=== PATIENT | female | born 1935 | race Caucasian/White ===

== ENCOUNTER 2021-12-25 14:30 | Outpatient (RCR) | payer MEDICARE, OTHER, SELFPAY | END 2022-02-18 11:42 | disposition home or self-care (01) | PROVIDERS: PCP Family Medicine; Visit Provider Family Medicine | DX: R53.1 Weakness (principal); Z51.89 Encounter for other specified aftercare | CPT/HCPCS: 97110; 97116; 97162 ==

== ENCOUNTER 2022-04-23 09:06 | Outpatient (CLI) | payer MEDICARE, OTHER, SELFPAY | END 2022-04-23 09:07 | disposition home or self-care (01) | LOC: AMB 04-26 14:32 | PROVIDERS: PCP Family Medicine; Visit Provider Family Medicine | DX: R53.1 Weakness (principal); R41.0 Disorientation, unspecified | CPT/HCPCS: A0425; A0427 ==

== ENCOUNTER 2022-04-23 09:36 | Inpatient (IN) | payer MEDICARE, OTHER, SELFPAY ==
[2022-04-23] VITALS (11 sets, daily range): BP systolic 119–147; BP diastolic 47–75; PULSE 81–113; RESP 15–40; TEMP 36.6–36.9; O2SAT 40–98; BMI 22.3; BMI 21.3
--- NOTE | 2022-04-23 10:17 | CRLHL7_ITS ---
For Patients: As a result of the Cures Act, medical imaging exams and procedure reports are released immediately into your electronic medical record. You may view this report before your referring provider. If you have questions, please contact your health care provider. INDICATION: Cough TECHNIQUE: Chest 1 view. COMPARISON: FINDINGS: Cardiovascular and mediastinum: Heart size and vasculature are normal in caliber and appearance. Mediastinum is within normal limits. Lungs and pleural space: Preceding left lung opacities. No sign of pleural effusion. No pneumothorax. Bones and soft tissues: No significant findings. IMPRESSION: Increasing left lung opacities compared to prior study. Dictated by Robin Mcdonald MD @ 04/23/2022 12:01:02 PM (Electronically Signed)
[2022-04-23 10:43] LABS: Lactate* 0.8 mmol/L (0.5-1.9)
[2022-04-23 10:46] LABS: Basophils Percent Auto 0.2 % (0.0-3.0); Eosinophils Percent Auto 0.3 % (0.0-7.0); Hematocrit 37.3 % (33.0-51.0); Hemoglobin* 12.2 gm/dL (12.0-16.0); Immature Granulocytes Pct Auto 0.2 %; Lymphocytes Percent Auto 9.6 % (20-44); Mean Corpuscular HGB Conc 33 gm/dL (32-36); Mean Corpuscular Hemoglobin 32 pg (26-34); Mean Corpuscular Volume 97 fL (80-100); Monocytes Percent Auto 7.6 % (0.0-11.0); Neutrophils Percent Auto 82.1 % (42.0-72.0); Platelet Count* 301 K/uL (140-440); RDW Coefficient of Variation % 12.9 % (11.5-15.5); Red Blood Count 3.86 m/uL (4.00-5.20); White Blood Count* 19.69 K/uL (4.50-11.00)
[2022-04-23 10:49] LABS: Troponin, Point-of-Care* 0.03 ng/ml (0.01-0.04)
[2022-04-23 10:52] LABS: Slide Review Reflex No
[2022-04-23 11:01] LABS: PCR FLU A Negative PCR FLU A (Negative); PCR FLU B Negative PCR FLU B (Negative); PCR RSV Negative PCR RSV (Negative)
[2022-04-23 11:05] LABS: Albumin* 3.8 g/dL (3.3-5.0); Chloride* 104 mmol/L (96-114)
[2022-04-23 11:06] LABS: Potassium* 4.1 mmol/L (3.6-5.1); Sodium* 134 mmol/L (135-149)
[2022-04-23 11:08] LABS: Bilirubin Direct* 0.2 mg/dL (0.0-0.5); Bilirubin Total* 0.6 mg/dL (0.1-1.5); Creatinine* 0.9 mg/dL (0.5-1.5); Est. Creatinine Clearance* 34.87; Estimated Glomerular Filt Rate 62 ml/min
[2022-04-23 11:09] LABS: Alanine Aminotransferase* 14 U/L (4-35); Alkaline Phosphatase* 69 U/L (40-150); Aspartate Amino Transferase* 29 U/L (12-35); Blood Urea Nitrogen* 19 mg/dL (7-30); Carbon Dioxide* 22 mmol/L (20-32); Glucose* 125 mg/dL (60-115); Total Protein* 7.3 g/dL (6.0-8.3)
[2022-04-23 11:11] LABS: C Reactive Protein* 8.3 mg/dL (0.5-1.0)
[2022-04-23 11:12] LABS: SARS PCR* Negative SARS-CoV-2 (Negative)
--- NOTE | 2022-04-23 11:16 | ED.GENADULT ---
HPI - General Adult General Chief complaint: Weakness Stated complaint: Weakness Time Seen by Provider: 04/23/22 10:01 Source: patient and family Mode of arrival: EMS Limitations: no limitations History of Present Illness HPI narrative: 86-year-old female coming in today complaining of weakness and cough. She states that her symptoms started last night. Patient lives at home with her , they both use walkers to get around. states that last night he had to help her stand up which is unusual. He then had to help her to bed where she wanted to go to bed early. She had several coughing fits throughout the night. This morning did not have the energy to get out of bed. Daughter came to check on them and noted that the patient did have an elevated temperature of 100.2?. Her did give her some Robitussin DM this morning and the ambulance was called and they presented to the ED. They deny any sick contacts. Patient states that she is COVID boosted and had her influenza vaccine this year. No changes in medications. No recent travel. She does not feel short of breath. She denies any chest pain. She does have a history of pulmonary fibrosis for which she has a mild chronic cough, but nothing like this. She has not eaten this morning. Denies tobacco use. Related Data Home Medications Medication Instructions Recorded Confirmed acetaminophen 500 mg capsule 500 mg PO Q6H PRN 04/23/22 04/23/22 aspirin 81 mg chewable tablet 81 mg PO DAILY 04/23/22 04/23/22 (Aspirin Childrens) atorvastatin 20 mg tablet 20 mg PO DAILY 04/23/22 04/23/22 benzonatate 100 mg capsule 100 mg PO TID PRN 04/23/22 04/23/22 calcium carb-ergocalciferol (vit tab PO 04/23/22 D2) 600 mg calcium-200 unit tablet famotidine 20 mg tablet 20 mg PO Q12H 04/23/22 04/23/22 latanoprost 0.005 % eye drops 1 drp ophthalmic (eye) HS 04/23/22 04/23/22 metoprolol tartrate 25 mg tablet 12.5 mg PO Q12H 04/23/22 04/23/22 nitroglycerin 0.4 mg sublingual 0.4 mg sublingual Q5-15M PRN 04/23/22 04/23/22 tablet (Nitrostat) Allergies Allergy/AdvReac Type Severity Reaction Status Date / Time codeine Allergy Mild Vomiting Verified 04/23/22 10:08 Penicillins Allergy Unknown Verified 04/23/22 10:08 Review of Systems Status of ROS: Reports: 10 or more systems reviewed and unremarkable except as noted in History and below [facility] Social History Smoking Status: Never smoker Do you use any of these nicotine containing products: None How often do you have a drink containing alcohol: never AUDIT-C Alcohol total score: 0 Non-prescribed substance use: denies use Exam Narrative: Exam Narrative: Elderly, well-developed patient in no acute distress. Alert and oriented x3. Answers questions appropriately. Mood and affect are appropriate. Thoughts are goal oriented and rational. No tangential or magical thinking noted. Patient speaks in full sentences without needing to catch her breath. Speech is not slurred or pressured. HEENT: Normocephalic atraumatic. Pupils are equally round reactive to light. Extraocular muscles are intact. Conjunctivae are moist without any icterus noted. Moist mucous membranes. Posterior pharynx is normal. Neck is supple without lymphadenopathy. Cardiovascular: Heart is regular rate and rhythm S1 and S2 are present without any murmurs. Lungs: Clear to auscultation on the right, left side has crackles and rales throughout the lung space. Abdomen: Soft and nontender nondistended with normal bowel sounds. No guarding or rebound. Extremities: Bilateral lower extremities are without edema. Skin: Well perfused without any obvious rashes. Const: Vital Signs, click to edit/add: Vital Signs - 24 hr 04/23/22 10:01 04/23/22 10:16 Temperature 97.8 F Pulse Rate [Right Pulse Oximeter] 100 Respiratory Rate 16 Blood Pressure [Ri ght Upper Arm] 130/64 Pulse Oximetry 91 97 Oxygen Delivery Me thod Room Air Course Course Hospital Course: IV was established and labs and blood cultures were drawn. EKG was done, read by me, without any acute changes. White cell count was elevated at 19.69. Sodium slightly low at 134. Remainder of chemistries and LFTs were normal. CRP elevated at 8.3. Negative COVID, influenza and RSV. Chest x-ray read by me, showing a probable left-sided effusion. Patient was started on azithromycin and Rocephin. She was saturating 91% on arrival on room air, she was placed on 2 L nasal cannula which increase her saturation to the upper 90s. Vital Signs Vital signs: Initial Vital Signs Temperature 97.8 F 04/23/22 10:01 Temperature Source Temporal Artery Scan 04/23/22 10:01 Pulse Rate 100 04/23/22 10:01 Respiratory Rate 16 04/23/22 10:01 Blood Pressure 130/64 04/23/22 10:01 Blood Pressure Mean 86 04/23/22 10:01 Blood Pressure Position Sitting 04/23/22 10:01 Pulse Oximetry 91 04/23/22 10:01 Oxygen Delivery Method 04/23/22 10:01 Vital Signs Temperature 97.8 F 04/23/22 10:01 Pulse Rate 100 04/23/22 10:01 Respiratory Rate 16 04/23/22 10:01 Blood Pressure 130/64 04/23/22 10:01 Pulse Oximetry 91 04/23/22 10:01 Oxygen Delivery Method 04/23/22 10:01 Temperature 97.8 F 04/23/22 10:01 Pulse Rate 100 04/23/22 10:01 Respiratory Rate 16 04/23/22 10:01 Blood Pressure 130/64 04/23/22 10:01 Pulse Oximetry 97 04/23/22 10:16 Oxygen Delivery Method 04/23/22 10:01 Medical Decision Making MDM Narrative Medical decision making narrative: 86-year-old female with pneumonia and mild hypoxia. Patient be admitted for further management. Lab Data Lab results reviewed: Yes I reviewed the patient's lab results Labs: Lab Results 04/23/22 04/23/22 04/23/22 Range/Units 10:13 10:26 10:26 WBC 19.69 H (4.50-11.00) K/uL RBC 3.86 L (4.00-5.20) m/uL Hgb 12.2 (12.0-16.0) gm/dL Hct 37.3 (33.0-51.0) % MCV 97 (80-100) fL MCH 32 (26-34) pg MCHC 33 (32-36) gm/dL RDW Coeff of Missael 12.9 (11.5-15.5) % Plt Count 301 (140-440) K/uL Neut % (Auto) 82.1 H (42.0-72.0) % Lymph % (Auto) 9.6 L (20-44) % [place] % (Auto) 7.6 (0.0-11.0) % Eos % (Auto) 0.3 (0.0-7.0) % Baso % (Auto) 0.2 (0.0-3.0) % Neut # (Auto) 16.20 H (1.7-7.0) K/uL Lymph # (Auto) 1.90 (0.90-2.90) K/uL [place] # (Auto) 1.50 H (0.00-0.90) K/UL Eos # (Auto) 0.10 (0.00-0.50) K/uL Baso # (Auto) 0.00 (0.00-0.30) K/uL Sodium 134 L (135-149) mmol/L Potassium 4.1 (3.6-5.1) mmol/L Chloride 104 (96-114) mmol/L Carbon Dioxide 22 (20-32) mmol/L BUN 19 (7-30) mg/dL Creatinine 0.9 (0.5-1.5) mg/dL Estimated Creat Clear 34.87 Estimated GFR 62 ml/min Glucose 125 H (60-115) mg/dL Lactate (0.5-1.9) mmol/L Calcium 9.0 (8.4-10.6) mg/dL Total Bilirubin 0.6 (0.1-1.5) mg/dL Direct Bilirubin 0.2 (0.0-0.5) mg/dL AST 29 (12-35) U/L ALT 14 (4-35) U/L Alkaline Phosphatase 69 (40-150) U/L Troponin I 0.02 (0.01-0.04) ng/mL C-Reactive Protein 8.3 H (0.5-1.0) mg/dL Total Protein 7.3 (6.0-8.3) g/dL Albumin 3.8 (3.3-5.0) g/dL SARS-CoV-2 (PCR) Negative SARS-CoV-2 (Negative) Influenza Type A (PCR) Negative PCR FLU A (Negative) Influenza Type B (PCR) Negative PCR FLU B (Negative) RSV (PCR) Negative PCR RSV (Negative) POC Troponin I (0.01-0.04) ng/ml 04/23/22 04/23/22 Range/Units 10:26 10:39 WBC (4.50-11.00) K/uL RBC (4.00-5.20) m/uL Hgb (12.0-16.0) gm/dL Hct (33.0-51.0) % MCV (80-100) fL MCH (26-34) pg MCHC (32-36) gm/dL RDW Coeff of Missael (11.5-15.5) % Plt Count (140-440) K/uL Neut % (Auto) (42.0-72.0) % Lymph % (Auto) (20-44) % [place] % (Auto) (0.0-11.0) % Eos % (Auto) (0.0-7.0) % Baso % (Auto) (0.0-3.0) % Neut # (Auto) (1.7-7.0) K/uL Lymph # (Auto) (0.90-2.90) K/uL [place] # (Auto) (0.00-0.90) K/UL Eos # (Auto) (0.00-0.50) K/uL Baso # (Auto) (0.00-0.30) K/uL Sodium (135-149) mmol/L Potassium (3.6-5.1) mmol/L Chloride (96-114) mmol/L Carbon Dioxide (20-32) mmol/L BUN (7-30) mg/dL Creatinine (0.5-1.5) mg/dL Estimated Creat Clear Estimated GFR ml/min Glucose (60-115) mg/dL Lactate 0.8 (0.5-1.9) mmol/L Calcium (8.4-10.6) mg/dL Total Bilirubin (0.1-1.5) mg/dL Direct Bilirubin (0.0-0.5) mg/dL AST (12-35) U/L ALT (4-35) U/L Alkaline Phosphatase (40-150) U/L Troponin I (0.01-0.04) ng/mL C-Reactive Protein (0.5-1.0) mg/dL Total Protein (6.0-8.3) g/dL Albumin (3.3-5.0) g/dL SARS-CoV-2 (PCR) (Negative) Influenza Type A (PCR) (Negative) Influenza Type B (PCR) (Negative) RSV (PCR) (Negative) POC Troponin I 0.03 (0.01-0.04) ng/ml Imaging Data Chest x-ray: Attestation: I have reviewed the pertinent imaging results. Radiologist's impression: Chest 1 view. COMPARISON: FINDINGS: Cardiovascular and mediastinum: Heart size and vasculature are normal in caliber and appearance.? Mediastinum is within normal limits.? Lungs and pleural space: Preceding left lung opacities. No sign of pleural effusion.? No pneumothorax.? Bones and soft tissues: No significant findings.? ? IMPRESSION: Increasing left lung opacities compared to prior study. ECG Data Attestation: I personally reviewed and interpreted this ECG as follows: (Normal sinus rhythm, pulse 95) Discharge Plan Discharge Clinical Impression: Weakness, Hypoxia, Pneumonia Prescriptions: No Action atorvastatin 20 mg tablet 20 mg PO DAILY Label Comments: TAKE ONE TABLET BY MOUTH ONCE DAILY WITH EVENING MEAL benzonatate 100 mg capsule 100 mg PO TID PRN Label Comments: TAKE 1 CAPSULE (100 MG) BY MOUTH 3 TIMES DAILY IF NEEDED FOR COUGH. famotidine 20 mg tablet 20 mg PO Q12H Label Comments: TAKE 1 TABLET (20 MG) BY MOUTH TWO TIMES DAILY. latanoprost 0.005 % drops 1 drp ophthalmic (eye) HS Label Comments: INSTILL 1 DROP INTO RIGHT EYE AT BEDTIME metoprolol tartrate 25 mg tablet 12.5 mg PO Q12H Label Comments: TAKE 1/2 TABLET BY MOUTH TWICE A DAY aspirin [Aspirin Childrens] 81 mg tablet,chewable 81 mg PO DAILY acetaminophen 500 mg capsule 500 mg PO Q6H PRN calcium carbonate-vitamin D2 600 mg calcium- 200 unit tablet PO nitroglycerin [Nitrostat] 0.4 mg tablet, sublingual 0.4 mg sublingual Q5-15M PRN Rx Instructions: do not exceed 3 doses per episode Follow Up/Referrals: Ana Masters MD [Primary Care Provider] -
[2022-04-23 11:19] LABS: Troponin I* 0.02 ng/mL (0.01-0.04)
[2022-04-23] MEDS: cefTRIAXone 1 GM in 0.9 % SODIUM CHLORIDE Mini-bag 100 ML IVPB (12:31)
--- NOTE | 2022-04-23 12:56 | ED.NURSE ---
given report to nurse on M/S and plan to admit to room 247 via car.
[2022-04-23] MEDS: AZITHROMYCIN 500 MG in 0.9 % SODIUM CHLORIDE 250 ml 250 ML 255 MG IVPB (13:50)
[2022-04-23] MEDS: 0.9 % SODIUM CHLORIDE 250 ml IV (13:52)
--- NOTE | 2022-04-23 15:10 | P.IMHP_ITS ---
Hospitalist- H&P: HPI History of Present Illness Date Seen: 04/23/22 Chief complaint: Weakness Narrative: Sara Caban is a 86 year old female who was BIBA from home today for weakness and illness. Given patient's cognitive impairment, Robin provides most history. Patient has been weak over the past couple of days; she has also had a cough that has been worse at night and has inhibited her sleep. This morning, patient's energy was very poor and she was found to have a temperature of a 100.2?. Robitussin DM has been helpful for symptoms, and Sara is also on Tessalon Perles thrice daily with good relief. Patient denies any chest pain. Sara has a known history of pulmonary fibrosis and is on 5 mg of prednisone daily per pulmonology. She does not require supplemental oxygen at home. ER course and findings: - new left-sided pneumonia on chest x-ray in addition to chronic pulmonary fibrosis - O2 sat 90-91%, did well with supplemental oxygen in the emergency room - treated with azithromycin and ceftriaxone Patient is admitted to the hospital for acute on chronic hypoxic respiratory failure and weakness, in the setting of community-acquired pneumonia with a known history of pulmonary fibrosis. Patient's past medical history is updated below, information gleaned from her and her chart. Her PCP is Dr. Sonam smith. She is currently a Full Code. Review of Systems Status of ROS: Reports: 10 or more systems reviewed and unremarkable except as noted in History and below Narrative: Limited by cognitive impairment, but specifically denies any acute pain at this time. [facility] Medical History (Updated 04/23/22 @ 15:33 by Yun Galaviz MD) Coronary artery disease Dementia Essential hypertension HSP (Henoch Schonlein purpura) Leukocytoclastic vasculitis Osteoporosis Pulmonary fibrosis Rheumatoid arthritis Stage III chronic kidney disease Surgical History (Updated 04/23/22 @ 15:18 by Yun Galaviz MD) H/O shoulder replacement History of PTCA Family History (Updated 04/23/22 @ 15:21 by Yun Galaviz MD) Mother Coronary artery disease Father Coronary artery disease Social History (Updated 04/23/22 @ 15:21 by Yun Galaviz MD) Narrative: Lives with Robin independently. Robin is medical POA. Two adult children. Retired public health social worker. Never smoker, no alcohol use. Highest level of school completed/degree received: Master's degree Smoking Status: Never smoker Do you use any of these nicotine containing products: None How many standard drinks containing alcohol do you have on a typical day: 1 or 2 How often do you have six or more drinks on one occasion: Daily or almost daily AUDIT-C Alcohol total score: 4 Non-prescribed substance use: denies use Caffeine: Yes (half-caff 4 a day) service: No Meds Home Medications and Allergies Home Medications Medication Instructions Recorded Confirmed Type acetaminophen 500 mg capsule 500 mg PO Q6H PRN 04/23/22 04/23/22 History aspirin 81 mg chewable tablet 81 mg PO DAILY 04/23/22 04/23/22 History (Aspirin Childrens) atorvastatin 20 mg tablet 20 mg PO QPM 04/23/22 04/23/22 History benzonatate 100 mg capsule 100 mg PO TID PRN 04/23/22 04/23/22 History calcium carb-ergocalciferol (vit 1 tab PO BID 04/23/22 04/23/22 History D2) 600 mg calcium-200 unit tablet famotidine 20 mg tablet 20 mg PO Q12H 04/23/22 04/23/22 History latanoprost 0.005 % eye drops 1 drp ophthalmic (eye) HS 04/23/22 04/23/22 History metoprolol tartrate 25 mg tablet 12.5 mg PO Q12H 04/23/22 04/23/22 History multivitamin (Daily Multi-Vitamin 1 tab PO DAILY 04/23/22 04/23/22 History tablet) nitroglycerin 0.4 mg sublingual 0.4 mg sublingual Q5-15M PRN 04/23/22 04/23/22 History tablet (Nitrostat) Home Medication Comments: Patient also on Prednisone 5mg daily Allergies Allergy/AdvReac Type Severity Reaction Status Date / Time codeine Allergy Mild Vomiting Verified 04/23/22 10:08 Penicillins Allergy Unknown Verified 04/23/22 10:08 Exam Narrative: Exam Narrative: GEN: Awake in hospital bed, appears ill but nontoxic. Intermittent coughing paroxysms HEENT: Normal external ears, EOMIs bilaterally, no scleral icterus CV: RRR with heart rate in the 90s during my exam, No concerning murmurs, rubs, or gallops R: Intermittent tachypnea, coarse crackles left base, rhonchi throughout bilateral lung huang Ext: wwp, no concerning edema Skin: No concerning skin lesions or rashes on exposed skin Neuro: No focal deficits, no resting tremor Psych: Appropriate for chronic conditions Const: Vital Signs, click to edit/add: Vital Signs - 24 hr 04/23/22 10:01 04/23/22 10:16 04/23/22 13:31 Temperature 97.8 F 98.5 F Pulse Rate [Pulse Oximeter] 101 H Pulse Rate [Right Pulse Oximeter] 100 Respiratory Rate 16 30 H Blood Pressure [Ri ght Arm] 147/71 H Blood Pressure [Ri ght Upper Arm] 130/64 Pulse Oximetry 91 97 92 Oxygen Delivery Me thod Room Air Room Air 04/23/22 13:31 04/23/22 10:30 04/23/22 11:00 Temperature Pulse Rate [Pulse Oximeter] Pulse Rate [Right Pulse Oximeter] 92 89 Respiratory Rate 30 H 31 H 29 H Blood Pressure [Ri ght Arm] Blood Pressure [Ri ght Upper Arm] 123/59 L 125/65 Pulse Oximetry 93 97 98 Oxygen Delivery Me thod Room Air Room Air Room Air 04/23/22 11:30 04/23/22 12:00 04/23/22 12:30 Temperature Pulse Rate [Pulse Oximeter] Pulse Rate [Right Pulse Oximeter] 91 90 96 Respiratory Rate 32 H 15 26 H Blood Pressure [Ri ght Arm] Blood Pressure [Ri ght Upper Arm] 119/47 L 128/57 L 126/73 Pulse Oximetry 98 98 98 Oxygen Delivery Me thod Nasal Cannula Room Air Nasal Cannula Hospitalist - H&P: Result Labs Labs: Short CBC 04/23/22 Range/Units 10:26 WBC 19.69 H (4.50-11.00) K/uL Hgb 12.2 (12.0-16.0) gm/dL Hct 37.3 (33.0-51.0) % Plt Count 301 (140-440) K/uL BMP 04/23/22 10:26 Sodium 134 L Potassium 4.1 Chloride 104 Carbon Dioxide 22 BUN 19 Creatinine 0.9 Glucose 125 H Calcium 9.0 Cardiac Enzymes 04/23/22 Range/Units 10:26 Troponin I 0.02 (0.01-0.04) ng/mL Liver Function 04/23/22 Range/Units 10:26 Total Bilirubin 0.6 (0.1-1.5) mg/dL Direct Bilirubin 0.2 (0.0-0.5) mg/dL AST 29 (12-35) U/L ALT 14 (4-35) U/L Alkaline Phosphatase 69 (40-150) U/L Albumin 3.8 (3.3-5.0) g/dL Assessment and Plan Assessment and plan (1) Acute and chronic respiratory failure with hypoxia: Problem comment: - multifactorial: CAP, pulmonary fibrosis flare - antibiotics, increase home Prednisone dose from 5 --> 40mg daily, prn supplemental oxygen and nebs, RT referral Status: Acute (2) Pneumonia: Problem comment: - Ceftriaxone and Azithromycin initiated in ED 04/23, will continue Status: Acute (3) Weakness: Problem comment: - acute on chronic - PT and OT referrals ordered Status: Acute (4) Pulmonary fibrosis: Problem comment: - diagnosed in 2014 - Has seen both Pulmonology and Rheumatology Status: Acute (5) Dementia: Problem comment: - no history of agitation, will monitor Status: Acute Plan - per above - SCDs and home ASA for ppx
[2022-04-23] MEDS: METOPROLOL TARTRATE 25 MG TABLET 12.5 MG PO (15:23)
[2022-04-23] MEDS: predniSONE 20 MG TABLET 40 MG PO (15:23)
[2022-04-23] MEDS: ACETAMINOPHEN 325 MG TABLET 975 MG PO ×2 (15:23→21:19)
[2022-04-23] MEDS: BENZONATATE 100 MG CAPSULE PO ×2 (15:25→21:19)
[2022-04-23] MEDS: FAMOTIDINE 20 MG TABLET PO (15:25)
[2022-04-23] MEDS: guaiFENesin 100 MG/ML CUP PO (16:07)
[2022-04-23] MEDS: ATORVASTATIN 10 MG TABLET 20 MG PO (17:58)
--- NOTE | 2022-04-23 18:10 | PC.NURSE ---
End of Shift: Patient pleasant and cooperative, arrived to the floor at about 1300 by bed. Patient oriented to self and location. Patient is vitally stable, lungs with crackles, BS WNL, IV SL. Patient too weak to ambulate today. Patient incontinent using brief. Patient diaphoretic but afebrile with telegraphic typewriter repairer, AGILE DEVELOPER did report a temp of 100.1, RN rechecked and afebrile. Patient has dry, unproductive cough, cough medicine given once, and tylenol given once for comfort. Patient only took a couple bites of half of piece of toast. Patient desated once, lowest 86%, patient currently on RA.
[2022-04-23] MEDS: LATANOPROST 0.005% OPHTH 1 DROP EYE-BOTH (21:19)
[2022-04-24 02:03] VITALS: BP 143/84; PULSE 75; RESP 20; TEMP 36.2; O2SAT 95
[2022-04-24] MEDS: METOPROLOL TARTRATE 25 MG TABLET 12.5 MG PO ×2 (04:13→15:38)
[2022-04-24] MEDS: FAMOTIDINE 20 MG TABLET PO ×2 (04:13→15:38)
[2022-04-24] MEDS: guaiFENesin 100 MG/ML CUP PO ×4 (04:13→20:13)
[2022-04-24 06:33] LABS: Basophils Percent Auto 0.1 % (0.0-3.0); Hematocrit 36.6 % (33.0-51.0); Hemoglobin* 12.1 gm/dL (12.0-16.0); Immature Granulocytes Pct Auto 0.2 %; Lymphocytes Percent Auto 8.4 % (20-44); Mean Corpuscular HGB Conc 33 gm/dL (32-36); Mean Corpuscular Hemoglobin 32 pg (26-34); Mean Corpuscular Volume 97 fL (80-100); Monocytes Percent Auto 3.8 % (0.0-11.0); Neutrophils Percent Auto 87.5 % (42.0-72.0); Platelet Count* 313 K/uL (140-440); RDW Coefficient of Variation % 12.9 % (11.5-15.5); Red Blood Count 3.79 m/uL (4.00-5.20); White Blood Count* 20.59 K/uL (4.50-11.00)
[2022-04-24 06:47] LABS: Chloride* 105 mmol/L (96-114); Potassium* 4.1 mmol/L (3.6-5.1); Sodium* 137 mmol/L (135-149)
[2022-04-24 06:50] LABS: Blood Urea Nitrogen* 24 mg/dL (7-30); Carbon Dioxide* 22 mmol/L (20-32); Creatinine* 0.9 mg/dL (0.5-1.5); Est. Creatinine Clearance* 34.87; Estimated Glomerular Filt Rate 62 ml/min; Glucose* 153 mg/dL (60-115)
[2022-04-24 06:51] LABS: Calcium* 9.3 mg/dL (8.4-10.6); Slide Review Reflex No
[2022-04-24 07:00] VITALS: BP 142/77; PULSE 84; RESP 24; TEMP 36.6; O2SAT 96
--- NOTE | 2022-04-24 08:14 | PC.NURSE ---
End of shift status [id number] Pt alert with chronic confusion. Pleasant, non impulsive. Denies pain. VSS on room air. PRN cough medicine given overnight. LS with crackles throughout. Incontinent of bowel and bladder overnight. Up with heavy assist of 2. Pt did ambulate to bathroom and back with unsteady gait and hesitation with taking steps. Intermittent resting between cares.
[2022-04-24] MEDS: predniSONE 20 MG TABLET 40 MG PO (08:57)
[2022-04-24] MEDS: AZITHROMYCIN 250 MG TABLET PO (08:57)
[2022-04-24] MEDS: ASPIRIN 81 MG TAB.CHEW PO (08:57)
--- NOTE | 2022-04-24 09:20 | PM.IMPN1 ---
Progress Note: A&P Assessment and plan (1) Acute and chronic respiratory failure with hypoxia: Problem details: - multifactorial: CAP, pulmonary fibrosis flare - antibiotics, increase home Prednisone dose from 5 --> 40mg daily, prn supplemental oxygen and nebs, RT referral Status: Acute (2) Pneumonia: Problem details: - Ceftriaxone and Azithromycin initiated in ED 04/23, will continue Status: Acute (3) Pulmonary fibrosis: Problem details: - diagnosed in 2014 - Has seen both Pulmonology and Rheumatology Status: Acute (4) Weakness: Problem details: - acute on chronic - PT and OT referrals ordered Status: Acute (5) Dementia: Problem details: - no history of agitation, will monitor Status: Acute Plan Plan for 04/24 on room air continue antibiotics continue steroids PT, OT evaluation anticipate she will need SNF Code status discussed; family electing to keep full code Subjective Date Seen: 04/24/22 Interval history: Patient hx limited by dementia continues to cough on room air denies chest pain eating breakfast w/o difficulty daughter and at bedside. code status discussed they want to keep patient full code Exam Narrative: Exam Narrative: Gen: no acute distress HEENT: NCAT EOMI MMM CV: RRR s1 s2 Lungs: Coarse breath sounds; coughing Abd: osft, nt, nd Const: Vital Signs, click to edit/add: Vital Signs - 24 hr 04/23/22 10:01 04/23/22 10:16 04/23/22 13:31 Temperature 97.8 F 98.5 F Pulse Rate [Pulse Oximeter] 101 H Pulse Rate [Right Pulse Oximeter] 100 Respiratory Rate 16 30 H Blood Pressure [Le ft Arm] Blood Pressure [Ri ght Arm] 147/71 H Blood Pressure [Ri ght Upper Arm] 130/64 Pulse Oximetry 91 97 92 Oxygen Delivery Me thod Room Air Room Air 04/23/22 13:31 04/23/22 10:30 04/23/22 11:00 Temperature Pulse Rate [Pulse Oximeter] Pulse Rate [Right Pulse Oximeter] 92 89 Respiratory Rate 30 H 31 H 29 H Blood Pressure [Le ft Arm] Blood Pressure [Ri ght Arm] Blood Pressure [Ri ght Upper Arm] 123/59 L 125/65 Pulse Oximetry 93 97 98 Oxygen Delivery Me thod Room Air Room Air Room Air 04/23/22 11:30 04/23/22 12:00 04/23/22 12:30 Temperature Pulse Rate [Pulse Oximeter] Pulse Rate [Right Pulse Oximeter] 91 90 96 Respiratory Rate 32 H 15 26 H Blood Pressure [Le ft Arm] Blood Pressure [Ri ght Arm] Blood Pressure [Ri ght Upper Arm] 119/47 L 128/57 L 126/73 Pulse Oximetry 98 98 98 Oxygen Delivery Me thod Nasal Cannula Room Air Nasal Cannula 04/23/22 15:00 04/23/22 15:00 04/23/22 15:00 Temperature 98.5 F Pulse Rate [Pulse Oximeter] 113 H 113 H Pulse Rate [Right Pulse Oximeter] Respiratory Rate 40 H 40 H Blood Pressure [Le ft Arm] 132/57 L Blood Pressure [Ri ght Arm] Blood Pressure [Ri ght Upper Arm] Pulse Oximetry 40 L 91 Oxygen Delivery Me thod Room Air Room Air 04/23/22 21:17 04/23/22 23:00 04/23/22 23:00 Temperature 98.2 F Pulse Rate [Pulse Oximeter] 81 81 Pulse Rate [Right Pulse Oximeter] Respiratory Rate 20 20 20 Blood Pressure [Le ft Arm] Blood Pressure [Ri ght Arm] 133/75 Blood Pressure [Ri ght Upper Arm] Pulse Oximetry 97 97 Oxygen Delivery Me thod Room Air Room Air 04/24/22 02:03 Temperature 97.1 F L Pulse Rate [Pulse Oximeter] 75 Pulse Rate [Right Pulse Oximeter] Respiratory Rate 20 Blood Pressure [Le ft Arm] Blood Pressure [Ri ght Arm] 143/84 H Blood Pressure [Ri ght Upper Arm] Pulse Oximetry 95 Oxygen Delivery Me thod Room Air Labs Labs: Laboratory Results - last 24 hr 04/23/22 04/23/22 04/23/22 10:13 10:26 10:26 WBC 19.69 H RBC 3.86 L Hgb 12.2 Hct 37.3 MCV 97 MCH 32 MCHC 33 RDW Coeff of Missael 12.9 Plt Count 301 Neut % (Auto) 82.1 H Lymph % (Auto) 9.6 L [place] % (Auto) 7.6 Eos % (Auto) 0.3 Baso % (Auto) 0.2 Neut # (Auto) 16.20 H Lymph # (Auto) 1.90 [place] # (Auto) 1.50 H Eos # (Auto) 0.10 Baso # (Auto) 0.00 Sodium 134 L Potassium 4.1 Chloride 104 Carbon Dioxide 22 BUN 19 Creatinine 0.9 Estimated Creat Clear 34.87 Estimated GFR 62 Glucose 125 H Lactate Calcium 9.0 Total Bilirubin 0.6 Direct Bilirubin 0.2 AST 29 ALT 14 Alkaline Phosphatase 69 Troponin I 0.02 C-Reactive Protein 8.3 H Total Protein 7.3 Albumin 3.8 SARS-CoV-2 (PCR) Negative SARS-CoV-2 Influenza Type A (PCR) Negative PCR FLU A Influenza Type B (PCR) Negative PCR FLU B RSV (PCR) Negative PCR RSV POC Troponin I 04/23/22 04/23/22 04/24/22 10:26 10:39 05:25 WBC 20.59 H RBC 3.79 L Hgb 12.1 Hct 36.6 MCV 97 MCH 32 MCHC 33 RDW Coeff of Missael 12.9 Plt Count 313 Neut % (Auto) 87.5 H Lymph % (Auto) 8.4 L [place] % (Auto) 3.8 Eos % (Auto) 0.0 Baso % (Auto) 0.1 Neut # (Auto) 18.00 H Lymph # (Auto) 1.70 [place] # (Auto) 0.80 Eos # (Auto) 0.00 Baso # (Auto) 0.00 Sodium Potassium Chloride Carbon Dioxide BUN Creatinine Estimated Creat Clear Estimated GFR Glucose Lactate 0.8 Calcium Total Bilirubin Direct Bilirubin AST ALT Alkaline Phosphatase Troponin I C-Reactive Protein Total Protein Albumin SARS-CoV-2 (PCR) Influenza Type A (PCR) Influenza Type B (PCR) RSV (PCR) POC Troponin I 0.03 04/24/22 05:25 WBC RBC Hgb Hct MCV MCH MCHC RDW Coeff of Missael Plt Count Neut % (Auto) Lymph % (Auto) [place] % (Auto) Eos % (Auto) Baso % (Auto) Neut # (Auto) Lymph # (Auto) [place] # (Auto) Eos # (Auto) Baso # (Auto) Sodium 137 Potassium 4.1 Chloride 105 Carbon Dioxide 22 BUN 24 Creatinine 0.9 Estimated Creat Clear 34.87 Estimated GFR 62 Glucose 153 H Lactate Calcium 9.3 Total Bilirubin Direct Bilirubin AST ALT Alkaline Phosphatase Troponin I C-Reactive Protein Total Protein Albumin SARS-CoV-2 (PCR) Influenza Type A (PCR) Influenza Type B (PCR) RSV (PCR) POC Troponin I
[2022-04-24] MEDS: cefTRIAXone 1 GM in 0.9 % SODIUM CHLORIDE Mini-bag 100 ML IVPB (09:41)
[2022-04-24] MEDS: BENZONATATE 100 MG CAPSULE PO (09:44)
[2022-04-24 11:00] VITALS: BP 106/69; PULSE 96; RESP 26; TEMP 36.8; O2SAT 93
[2022-04-24 15:00] VITALS: BP 147/83; PULSE 101; RESP 30; TEMP 36.7; O2SAT 96
[2022-04-24] MEDS: ATORVASTATIN 10 MG TABLET 20 MG PO (18:27)
--- NOTE | 2022-04-24 18:36 | PC.NURSE ---
End of Shift: Patient pleasant, cooperative, and confused. Patient alert and oriented to self. Patient vitally stable, lungs with crackles, BS WNL, IV SL. Patient with dry cough, benzotate and cough syrup given x2. Patient 2 assist, walker/ez-stand with ambulation. Patient denies pain. Patient tolerating regular diet. Patient urinating and had 2 BM's this shift.
[2022-04-24 19:00] VITALS: BP 141/87; PULSE 69; RESP 16; TEMP 36.8; O2SAT 96
[2022-04-24] MEDS: OLANZapine 5 MG TAB.RAPDIS PO (20:14)
[2022-04-24] MEDS: LATANOPROST 0.005% OPHTH 1 DROP EYE-BOTH (20:14)
[2022-04-24 23:00] VITALS: BP 148/80; PULSE 69; PULSE 84; RESP 16; TEMP 36.6; O2SAT 96
[2022-04-25] VITALS (8 sets, daily range): BP systolic 112–139; BP diastolic 47–77; PULSE 79–92; RESP 16–20; TEMP 36.3–36.7; O2SAT 92–97
[2022-04-25] MEDS: BENZONATATE 100 MG CAPSULE PO ×2 (00:36→09:49)
[2022-04-25] MEDS: FAMOTIDINE 20 MG TABLET PO ×2 (04:24→20:52)
[2022-04-25] MEDS: METOPROLOL TARTRATE 25 MG TABLET 12.5 MG PO ×2 (04:24→18:10)
--- NOTE | 2022-04-25 06:15 | PC.NURSE ---
VSS on RA. Patient was confused most of shift. Continue to cough, PRN Benzonatate and Guaifenesin given with no improvement. PRN Zyprexa given for agitation but didn't work. Pt continue to get out of bed without using call light, thus setting bed alarm off. Patient requires assist of 2 with transfers using EZ stand. Continent of bowel and bladder.
--- NOTE | 2022-04-25 09:34 | CRLHL7_ITS ---
For Patients: As a result of the Century Cures Act, medical imaging exams and procedure reports are released immediately into your electronic medical record. You may view this report before your referring provider. If you have questions, please contact your health care provider. INDICATION: pna, fibrosis inpatient f/u TECHNIQUE: Chest 1 views. COMPARISON: 04/23/2022. FINDINGS: Cardiovascular and mediastinum: Heart size appears similar but is obscured by airspace opacities. Lungs and pleural spaces: Similar diffuse airspace opacities throughout the left lung and worsening patchy airspace opacities throughout the right lung. The lungs are hypoinflated. No sign of pleural effusion. No pneumothorax. Bones and soft tissues: No significant findings. Right shoulder arthroplasty. S-shaped curvature of the spine. IMPRESSION: Similar diffuse airspace opacities throughout the left lung and worsening patchy airspace opacities throughout the right lung. Dictated by Panda Hardin MD @ 04/25/2022 10:17:58 AM (Electronically Signed)
[2022-04-25] MEDS: guaiFENesin 100 MG/ML CUP PO ×2 (09:47→14:18)
[2022-04-25] MEDS: AZITHROMYCIN 250 MG TABLET PO (09:48)
[2022-04-25] MEDS: ASPIRIN 81 MG TAB.CHEW PO (09:48)
[2022-04-25] MEDS: predniSONE 20 MG TABLET 40 MG PO (09:49)
[2022-04-25] MEDS: 0.9 % SODIUM CHLORIDE 250 ml IV (09:50)
[2022-04-25] MEDS: cefTRIAXone 1 GM in 0.9 % SODIUM CHLORIDE Mini-bag 100 ML IVPB (09:50)
[2022-04-25 10:33] LABS: Hematocrit 38.2 % (33.0-51.0); Hemoglobin* 12.4 gm/dL (12.0-16.0); Immature Granulocytes Pct Auto 0.3 %; Lymphocytes Percent Auto 12.8 % (20-44); Mean Corpuscular HGB Conc 33 gm/dL (32-36); Mean Corpuscular Hemoglobin 32 pg (26-34); Mean Corpuscular Volume 97 fL (80-100); Monocytes Percent Auto 5.5 % (0.0-11.0); Neutrophils Percent Auto 81.4 % (42.0-72.0); Platelet Count* 330 K/uL (140-440); RDW Coefficient of Variation % 12.8 % (11.5-15.5); Red Blood Count 3.93 m/uL (4.00-5.20); White Blood Count* 23.51 K/uL (4.50-11.00)
[2022-04-25 10:39] LABS: Slide Review Reflex No
[2022-04-25 10:47] LABS: Chloride* 103 mmol/L (96-114); Potassium* 3.7 mmol/L (3.6-5.1); Sodium* 137 mmol/L (135-149)
[2022-04-25 10:50] LABS: Blood Urea Nitrogen* 26 mg/dL (7-30); Carbon Dioxide* 26 mmol/L (20-32); Creatinine* 0.9 mg/dL (0.5-1.5); Est. Creatinine Clearance* 34.87; Estimated Glomerular Filt Rate 62 ml/min; Glucose* 140 mg/dL (60-115)
[2022-04-25 10:51] LABS: Calcium* 9.3 mg/dL (8.4-10.6)
[2022-04-25 11:07] LABS: Procalcitonin* 0.39 ng/mL (<0.50)
[2022-04-25 11:10] LABS: C Reactive Protein* 16.4 mg/dL (0.5-1.0)
[2022-04-25] MEDS: METHYLPREDNISOLONE SOD SUCC 62.5 MG/ML (125) 80 MG IVP ×2 (14:16→18:11)
[2022-04-25] MEDS: BENZONATATE 100 MG CAPSULE 200 MG PO ×2 (14:17→20:51)
[2022-04-25] MEDS: ERTAPENEM 1 GM in 0.9 % SODIUM CHLORIDE Mini-bag 100 ML IVPB (14:18)
[2022-04-25] MEDS: QUETIAPINE 25 MG TABLET PO ×2 (14:22→20:51)
--- NOTE | 2022-04-25 15:06 | PM.IMPN1 ---
Progress Note: A&P Assessment and plan (1) Acute and chronic respiratory failure with hypoxia: Problem details: - multifactorial: CAP, pulmonary fibrosis flare - change rocephin to ertapenem due to pen allergy and progression on rocephin. continue zpack. -change prednisone to IV solu-medrol -schedule nebs and supportive measures. Status: Acute (2) Pneumonia: Problem details: - Ceftriaxone and Azithromycin initiated in ED 04/23, change to ertapenem to increase coverage. continue azithromycin. Status: Acute (3) Pulmonary fibrosis: Problem details: - diagnosed in 2014 - Has seen both Pulmonology and Rheumatology Status: Acute (4) Weakness: Problem details: - acute on chronic - PT and OT referrals ordered Status: Acute (5) Dementia: Problem details: - no history of agitation, will monitor -adding seroquel Status: Acute Subjective Date Seen: 04/25/22 Interval history: Daily Progress Note - Hospital Medicine Day #: 3 s/p 2 days of rocephin/azithromycin Day 1 of zosyn/azithromycin CC: weakness/cough related to CAP and pulmonary fibrosis OVERNIGHT UPDATES FROM STAFF & MED, LAB, IMAGING UPDATES Continues to cough and be pleasantly confused. Very limited short-term memory. Remains afebrile Pressure is stable Pulse ox 80s Respiratory rate 16 Pulse ox 90s on room air CBC is relevant for a up trending leukocytosis from 19.6-23.5. Hemoglobin is stable. Neutrophil count is in the 80 percentile Basic metabolic and renal function are all reassuring. Blood glucose 125-140 Lactate is normal CRP is up trending from 8-16 However, procalcitonin is unremarkable Portable chest x-ray Similar diffuse airspace opacities throughout the left lung and worsening patchy airspace opacities throughout the right lung. Review of Systems: See subjective Cardiac: No new chest pain/pressure/palpitations. Respiratory: no new dyspnea. GI: No abdominal bloating Objective: Vitals: see above Lungs: Clear. Cardiac: S1S2. Disposition/Potential discharge - Likely to return to previous living situation. Total time is 35 minutes with greater than 50% spent in counseling and coordination of care. Exam Const: Vital Signs, click to edit/add: Vital Signs - 24 hr 04/24/22 19:00 04/24/22 23:00 04/24/22 23:00 Temperature 98.2 F Pulse Rate [Pulse Oximeter] 69 69 Respiratory Rate 16 16 16 Blood Pressure [Le ft Arm] 141/87 H Pulse Oximetry 96 96 Oxygen Delivery Me thod Room Air Room Air 04/24/22 23:00 04/25/22 03:00 04/25/22 08:30 Temperature 98 F 97.9 F Pulse Rate [Pulse Oximeter] 84 80 Respiratory Rate 16 16 18 Blood Pressure [Le ft Arm] 148/80 H 139/77 Pulse Oximetry 96 97 92 Oxygen Delivery Me thod Room Air Room Air Room Air Labs Labs: Laboratory Results - last 24 hr 04/25/22 04/25/22 04/25/22 10:30 10:30 10:30 WBC 23.51 H RBC 3.93 L Hgb 12.4 Hct 38.2 MCV 97 MCH 32 MCHC 33 RDW Coeff of Missael 12.8 Plt Count 330 Neut % (Auto) 81.4 H Lymph % (Auto) 12.8 L [place] % (Auto) 5.5 Eos % (Auto) 0.0 Baso % (Auto) 0.0 Neut # (Auto) 19.10 H Lymph # (Auto) 3.00 H [place] # (Auto) 1.30 H Eos # (Auto) 0.00 Baso # (Auto) 0.00 Sodium 137 Potassium 3.7 Chloride 103 Carbon Dioxide 26 BUN 26 Creatinine 0.9 Estimated Creat Clear 34.87 Estimated GFR 62 Glucose 140 H Calcium 9.3 C-Reactive Protein 16.4 H Procalcitonin 0.39
[2022-04-25 15:42] LABS: NT Pro B Type NatriureticPept* 820 pg/mL
[2022-04-25] MEDS: ATORVASTATIN 10 MG TABLET 20 MG PO (18:11)
--- NOTE | 2022-04-25 19:34 | PC.NURSE ---
Pt remains confused. Robin present this am and dtr Lilian in the afternoon. ATB changed to ertapenem. Pt moved to room 245 from 247 for closer observation. Bed alarm/ chair alarm engaged. Recommend finger foods for this patient with dementia. Needs frequent checks and reorientation. Incontinent of urine throughout the day/nicolasa shift. One incontinent bm and one continent bm. EZ stand to recliner for Lunch and dinner. Impulsive and easily distracted.
[2022-04-25] MEDS: LATANOPROST 0.005% OPHTH 1 DROP EYE-BOTH (22:43)
[2022-04-26] VITALS (7 sets, daily range): BP systolic 119–152; BP diastolic 65–83; PULSE 68–79; RESP 16–18; TEMP 36.2–36.6; O2SAT 96
[2022-04-26] MEDS: METHYLPREDNISOLONE SOD SUCC 62.5 MG/ML (125) 80 MG IVP ×3 (00:45→12:26)
[2022-04-26] MEDS: METOPROLOL TARTRATE 25 MG TABLET 12.5 MG PO ×2 (05:09→14:12)
--- NOTE | 2022-04-26 06:22 | PC.NURSE ---
VSS on RA. Patient continue with confusion. Incontinent bladder, assisted to BR using EZ stand x1 with medium BM. Denies pain, and tolerated meds without concern.
[2022-04-26] MEDS: guaiFENesin 100 MG/ML CUP PO ×2 (10:23→14:14)
[2022-04-26] MEDS: BENZONATATE 100 MG CAPSULE 200 MG PO ×2 (10:24→20:49)
[2022-04-26] MEDS: FAMOTIDINE 20 MG TABLET PO ×2 (10:25→20:49)
[2022-04-26] MEDS: QUETIAPINE 25 MG TABLET PO ×2 (10:25→20:49)
[2022-04-26] MEDS: AZITHROMYCIN 250 MG TABLET PO (10:25)
[2022-04-26] MEDS: ASPIRIN 81 MG TAB.CHEW PO (10:33)
[2022-04-26 12:21] LABS: HCO3 VBG 23 mmol/L (21-28); Ionized Calcium* 1.16 mmol/L (1.11-1.30); PCO2 VBG 33 mmHG (40-50); pH VBG 7.454 (7.32-7.43)
[2022-04-26 12:24] LABS: Hematocrit 37.6 % (33.0-51.0); Hemoglobin* 12.5 gm/dL (12.0-16.0); Immature Granulocytes Abs Auto 0.02 K/uL (0.00-0.30); Immature Granulocytes Pct Auto 0.2 %; Lymphocytes Percent Auto 8.9 % (20-44); Mean Corpuscular HGB Conc 33 gm/dL (32-36); Mean Corpuscular Hemoglobin 32 pg (26-34); Mean Corpuscular Volume 96 fL (80-100); Monocytes Percent Auto 2.7 % (0.0-11.0); Neutrophils Percent Auto 88.2 % (42.0-72.0); Platelet Count* 310 K/uL (140-440); RDW Coefficient of Variation % 12.8 % (11.5-15.5); Red Blood Count 3.91 m/uL (4.00-5.20); White Blood Count* 10.33 K/uL (4.50-11.00)
[2022-04-26] MEDS: ERTAPENEM 1 GM in 0.9 % SODIUM CHLORIDE Mini-bag 100 ML IVPB (12:25)
[2022-04-26 12:28] LABS: Slide Review Reflex No
[2022-04-26] MEDS: 0.9 % SODIUM CHLORIDE 250 ml IV (12:33)
[2022-04-26 12:38] LABS: Albumin* 3.9 g/dL (3.3-5.0); Chloride* 109 mmol/L (96-114); Potassium* 4.1 mmol/L (3.6-5.1); Sodium* 139 mmol/L (135-149)
[2022-04-26 12:40] LABS: Creatinine* 0.8 mg/dL (0.5-1.5); Est. Creatinine Clearance* 34.87; Estimated Glomerular Filt Rate 72 ml/min
[2022-04-26 12:41] LABS: Alanine Aminotransferase* 25 U/L (4-35); Alkaline Phosphatase* 75 U/L (40-150); Aspartate Amino Transferase* 40 U/L (12-35); Bilirubin Total* 0.7 mg/dL (0.1-1.5); Blood Urea Nitrogen* 29 mg/dL (7-30); Carbon Dioxide* 21 mmol/L (20-32); Glucose* 183 mg/dL (60-115)
[2022-04-26 12:42] LABS: Calcium* 9.2 mg/dL (8.4-10.6); Magnesium* 2.3 mg/dL (1.5-2.6)
[2022-04-26 12:54] LABS: C Reactive Protein* 12.5 mg/dL (0.5-1.0); NT Pro B Type NatriureticPept* 1210 pg/mL
[2022-04-26 12:58] LABS: Procalcitonin* 0.21 ng/mL (<0.50)
--- NOTE | 2022-04-26 14:00 | P.IMPN_ITS ---
Progress Note: A&P Assessment and plan (1) Acute and chronic respiratory failure with hypoxia: Problem details: - multifactorial: CAP, pulmonary fibrosis flare - change rocephin to ertapenem due to pen allergy and progression on rocephin. continue zpack. -change prednisone to IV solu-medrol - changing back to p.o. as of 04/26 to decrease the risk of delirium -schedule nebs and supportive measures. Status: Acute (2) Pneumonia: Problem details: - Ceftriaxone and Azithromycin initiated in ED 04/23, change to ertapenem to increase coverage. continue azithromycin. Status: Acute (3) Pulmonary fibrosis: Problem details: - diagnosed in 2014 - Has seen both Pulmonology and Rheumatology Status: Acute (4) Weakness: Problem details: - acute on chronic - PT and OT referrals ordered Status: Acute (5) Dementia: Problem details: - no history of agitation, will monitor -adding seroquel Status: Acute Subjective Date Seen: 04/26/22 Interval history: Daily Progress Note - Hospital Medicine Day #: 4 s/p 2 days of rocephin/azithromycin Day 2 of zosyn/azithromycin CC: weakness/cough related to CAP and pulmonary fibrosis OVERNIGHT UPDATES FROM STAFF & MED, LAB, IMAGING UPDATES Continues to cough and be pleasantly confused. Very limited short-term memory. PT brings forward some concern about left-sided weakness however, patient is difficult to direct and does not follow directions. Is nothing obvious on her neuro exam. Remains afebrile Pressure is stable Pulse ox 80s Respiratory rate 16 Pulse ox 90s on room air Please to see that her CRP and CBC are all down trending. She seems to be responding to the IV steroids and change in antibiotics. Portable chest x-ray 04/25/2022 Similar diffuse airspace opacities throughout the left lung and worsening patchy airspace opacities throughout the right lung. Review of Systems: See subjective Cardiac: No new chest pain/pressure/palpitations. Respiratory: no new dyspnea. GI: No abdominal bloating Objective: Intermittently sleeping, mild agitation Vitals: see above Lungs: Crackles bilaterally. No wheezes. Cardiac: S1S2. Disposition/Potential discharge - Will see if she is strong enough and directable enough to take home has her is in a walker, versus short-term/long-term SNF placement Total time is 35 minutes with greater than 50% spent in counseling and coordination of care. Exam Const: Vital Signs, click to edit/add: Vital Signs - 24 hr 04/25/22 15:00 04/25/22 16:35 04/25/22 19:00 Temperature 98 F 97.7 F Pulse Rate [Pulse Oximeter] 92 84 Respiratory Rate 20 16 Blood Pressure [Le ft Arm] 112/71 139/71 Blood Pressure [Ri ght Arm] Pulse Oximetry 92 94 97 Oxygen Delivery Me thod Room Air Room Air Room Air 04/25/22 23:00 04/25/22 23:00 04/25/22 23:00 Temperature 97.4 F L Pulse Rate [Pulse Oximeter] 84 79 Respiratory Rate 16 16 16 Blood Pressure [Le ft Arm] 125/69 Blood Pressure [Ri ght Arm] Pulse Oximetry 97 96 Oxygen Delivery Me thod Room Air Room Air 04/26/22 03:00 Temperature 97.4 F L Pulse Rate [Pulse Oximeter] 79 Respiratory Rate 16 Blood Pressure [Le ft Arm] 125/69 Blood Pressure [Ri ght Arm] 147/83 H Pulse Oximetry 96 Oxygen Delivery Me thod Room Air Labs Labs: Laboratory Results - last 24 hr 04/23/22 04/26/22 04/26/22 10:26 12:15 12:15 WBC 10.33 RBC 3.91 L Hgb 12.5 Hct 37.6 MCV 96 MCH 32 MCHC 33 RDW Coeff of Missael 12.8 Plt Count 310 Neut % (Auto) 88.2 H Lymph % (Auto) 8.9 L [place] % (Auto) 2.7 Eos % (Auto) 0.0 Baso % (Auto) 0.0 Neut # (Auto) 9.10 H Lymph # (Auto) 0.90 [place] # (Auto) 0.30 Eos # (Auto) 0.00 Baso # (Auto) 0.00 VBG pH VBG pCO2 VBG pO2 VBG HCO3 Sodium 139 Potassium 4.1 Chloride 109 Carbon Dioxide 21 BUN 29 Creatinine 0.8 Estimated Creat Clear 34.87 Estimated GFR 72 Glucose 183 H Calcium 9.2 Ionized Calcium Tee Magnesium 2.3 Total Bilirubin 0.7 AST 40 H ALT 25 Alkaline Phosphatase 75 C-Reactive Protein 12.5 H NT-Pro-B Natriuret Pep 820 1210 Total Protein 8.0 Albumin 3.9 Procalcitonin 0.21 04/26/22 12:15 WBC RBC Hgb Hct MCV MCH MCHC RDW Coeff of Missael Plt Count Neut % (Auto) Lymph % (Auto) [place] % (Auto) Eos % (Auto) Baso % (Auto) Neut # (Auto) Lymph # (Auto) [place] # (Auto) Eos # (Auto) Baso # (Auto) VBG pH 7.454 H VBG pCO2 33 L VBG pO2 60.0 H VBG HCO3 23 Sodium Potassium Chloride Carbon Dioxide BUN Creatinine Estimated Creat Clear Estimated GFR Glucose Calcium Ionized Calcium Tee 1.16 Magnesium Total Bilirubin AST ALT Alkaline Phosphatase C-Reactive Protein NT-Pro-B Natriuret Pep Total Protein Albumin Procalcitonin
[2022-04-26] MEDS: ATORVASTATIN 10 MG TABLET 20 MG PO (18:14)
--- NOTE | 2022-04-26 19:54 | PC.NURSE ---
PT REMAINS CONFUSED. RN REORIENTED PAT WITH EACH NSG INTERVENTION. UPDATED SPOUSE JENNIFER VIA PHONE AT [phone]. PT SLEPT IN AND UP TO CHAIR WITH EZ STAND. NEW IV START PER JEANNIE GUPTA RN. IV ERTAPENEM INFUSED. SPOUSE JENNIFER VISITED MID-MORNING. PT REMAINS INCONTINENT OF URINE. SKIN REMAINS WNL PARAMETERS. PLEASE SEE EMAR FOR MEDICATIONS GIVEN ON THE DAY SHIFT. BED AND CHAIR ALARMS ENGAGED. REPORT TO SATURNINO GO FOR NOC SHIFT.
[2022-04-26] MEDS: LATANOPROST 0.005% OPHTH 1 DROP EYE-BOTH (20:49)
[2022-04-27 07:00] VITALS: BP 148/66; PULSE 72; RESP 22; TEMP 36.8; O2SAT 94
--- NOTE | 2022-04-27 07:24 | PC.NURSE ---
VSS on RA. Patient is alert and oriented with some confusion. Requires 2 staff assist for transfers. Pt denies pain this shift. Slept most of shift.
--- NOTE | 2022-04-27 08:17 | P.IMPN_ITS ---
Progress Note: A&P Assessment and plan (1) Acute and chronic respiratory failure with hypoxia: Problem details: - multifactorial: CAP, pulmonary fibrosis flare - changed rocephin to ertapenem on 04/25 due to disease progression - continue course of Azithromycin - on po steroids (40mg now, on 5mg daily at home) - schedule nebs and supportive measures Status: Acute (2) Pneumonia: Problem details: - Ceftriaxone and Azithromycin initiated in ED 04/23, changed to ertapenem and Azithro 04/25 to increase coverage Status: Acute (3) Pulmonary fibrosis: Problem details: - diagnosed in 2014 - Has seen both Pulmonology and Rheumatology Status: Acute (4) Weakness: Problem details: - acute on chronic - PT and OT referrals ordered Status: Acute (5) Dementia: Problem details: - added seroquel for agitation Status: Acute Plan - swallow evaluation today - ASA and SCDs for prophylaxis - appreciate input from PT/OT/SW - and daughter updated outside patient room, questions answered Subjective Date Seen: 04/27/22 Interval history: 86-year-old female with cognitive impairment, admitted to the hospital on 04/23 for acute hypoxic respiratory failure, secondary to community-acquired pneumonia in the setting of known pulmonary fibrosis. Sara is no longer requiring supplemental oxygen. She is on ertapenem (04/25) and azithromycin (04/23). Speech therapy will see her today for bedside swallow evaluation. Sara has no concerns for hospitalist team today. She is working with therapies, will likely require SNF placement upon discharge. Exam Narrative: Exam Narrative: GEN: Alert HEENT: Normal external ears, EOMIs bilaterally, no scleral icterus CV: RRR, No concerning murmurs, rubs, or gallops R: LCTA bilaterally without concerning wheezing, rales, or rhonchi Ext: wwp, no concerning edema Skin: No concerning skin lesions or rashes on exposed skin Neuro: Nonfocal Psych: Appropriate a Const: Vital Signs, click to edit/add: Vital Signs - 24 hr 04/26/22 08:50 04/26/22 08:50 04/26/22 12:00 Temperature 97.2 F L 97.7 F Pulse Rate [Pulse Oximeter] 70 73 Respiratory Rate 16 16 18 Blood Pressure [Le ft Arm] 152/73 H 128/65 Pulse Oximetry 96 96 96 Oxygen Delivery Me thod Room Air Room Air Room Air Oxygen Flow Rate 04/26/22 16:05 04/26/22 16:15 04/26/22 19:00 Temperature 97.8 F Pulse Rate [Pulse Oximeter] 68 Respiratory Rate 18 18 16 Blood Pressure [Le ft Arm] 126/69 Pulse Oximetry 96 96 Oxygen Delivery Me thod Room Air Room Air Oxygen Flow Rate 04/26/22 23:00 04/26/22 23:00 04/26/22 23:00 Temperature 97.7 F Pulse Rate [Pulse Oximeter] 68 74 Respiratory Rate 16 18 16 Blood Pressure [Le ft Arm] 119/70 Pulse Oximetry Oxygen Delivery Me thod Nasal Cannula BiPA P Oxygen Flow Rate 2 Labs Labs: Laboratory Results - last 24 hr 04/26/22 04/26/22 04/26/22 12:15 12:15 12:15 WBC 10.33 RBC 3.91 L Hgb 12.5 Hct 37.6 MCV 96 MCH 32 MCHC 33 RDW Coeff of Missael 12.8 Plt Count 310 Neut % (Auto) 88.2 H Lymph % (Auto) 8.9 L [place] % (Auto) 2.7 Eos % (Auto) 0.0 Baso % (Auto) 0.0 Neut # (Auto) 9.10 H Lymph # (Auto) 0.90 [place] # (Auto) 0.30 Eos # (Auto) 0.00 Baso # (Auto) 0.00 VBG pH 7.454 H VBG pCO2 33 L VBG pO2 60.0 H VBG HCO3 23 Sodium 139 Potassium 4.1 Chloride 109 Carbon Dioxide 21 BUN 29 Creatinine 0.8 Estimated Creat Clear 34.87 Estimated GFR 72 Glucose 183 H Calcium 9.2 Ionized Calcium Tee 1.16 Magnesium 2.3 Total Bilirubin 0.7 AST 40 H ALT 25 Alkaline Phosphatase 75 C-Reactive Protein 12.5 H NT-Pro-B Natriuret Pep 1210 Total Protein 8.0 Albumin 3.9 Procalcitonin 0.21
[2022-04-27] MEDS: FAMOTIDINE 20 MG TABLET PO ×2 (09:15→19:49)
[2022-04-27] MEDS: QUETIAPINE 25 MG TABLET PO ×2 (09:15→19:49)
[2022-04-27] MEDS: AZITHROMYCIN 250 MG TABLET PO (09:15)
[2022-04-27] MEDS: ASPIRIN 81 MG TAB.CHEW PO (09:15)
[2022-04-27] MEDS: BENZONATATE 100 MG CAPSULE 200 MG PO ×3 (09:16→19:49)
[2022-04-27] MEDS: guaiFENesin 100 MG/ML CUP PO (10:49)
--- NOTE | 2022-04-27 10:58 | CRLHL7_ITS ---
For Patients: As a result of the Cures Act, medical imaging exams and procedure reports are released immediately into your electronic medical record. You may view this report before your referring provider. If you have questions, please contact your health care provider. INDICATION: Follow up pneumonia. TECHNIQUE: Chest single view. COMPARISON: April 25, 2022. IMPRESSION: Diminished lung volumes no change. Stable heart size and vascular pattern. Left lung has diffuse reticular fibrotic changes and diminished volume. The right lung shows no new consolidation. Abdominal bowel gas pattern is within normal limits. Stable elevation left hemidiaphragm. Right reverse type shoulder arthroplasty satisfactory appearance on this single view. Dictated by Issa Red MD @ 04/27/2022 11:55:26 AM (Electronically Signed)
[2022-04-27 11:00] VITALS: BP 152/78; PULSE 86; RESP 30; TEMP 36.2; O2SAT 96
[2022-04-27] MEDS: ERTAPENEM 1 GM in 0.9 % SODIUM CHLORIDE Mini-bag 100 ML IVPB (12:28)
[2022-04-27] MEDS: 0.9 % SODIUM CHLORIDE 250 ml IV (12:29)
[2022-04-27 15:00] VITALS: BP 169/94; PULSE 84; RESP 24; TEMP 36.6; O2SAT 96
[2022-04-27] MEDS: METOPROLOL TARTRATE 25 MG TABLET 12.5 MG PO (15:45)
--- NOTE | 2022-04-27 16:22 | PC.SOCIAL ---
Discharge planning- Met with pt, pt's , Robin, and pt's daughter, Lilian, in pt's room. Discussed discharge planning. The family preference is a SNF in [place] or [place]. Contacted the following facilities for possible admission. 1. [facility]- No open beds. 2. [facility]- Phone call to Lilian Martines. There is an opening. Faxed referral. Received a phone call from Lilian Martines stating pt is declined for admission. 3. [facility]- Phone call to Christina Zheng. Christina will assess the referral. Faxed referral. Received a phone call that the staff believes pt needs memory care and cannot meet the need due to staffing. Pt was declined for admission. 4. [facility] [place]- Phone call to Divya in admissions. There are openings, faxed referral. Received a phone call that pt was declined for admission. 5. [facility] in [place]- Phone call to Torri. There are openings on case by case basis. Faxed referral. 6. [facility] in [place]- Phone call to [facility]. Left voicemail inquiring on bed availability. Faxed and e-mailed referral to [email or web address]. 7. [facility] in [place]- Phone call to Saima in admissions. Left a voicemail inquiring on bed availability. 8. [facility] in [place]- Phone call to admissions. Left a voicemail inquiring on bed availability. 9. [facility] in [facility]- Phone call to admissions. Left a voicemail inquiring on bed availability. Social Work will continue to follow up as necessary.
--- NOTE | 2022-04-27 17:29 | SLP.EVAL ---
NOLVIA Alaniz Start: 04/27/22 17:08 Freq: Status: Active Protocol: Document 04/27/22 17:08 JEANNIE (Rec: 04/27/22 17:25 [facility] [id number]) E-signed By Paris Randall MA, [facility], [facility] System Review History & Reason For Referral Type of Speech Evaluation Dysphagia Evaluation Rehabilitation Order Evaluation Date of Order 04/27/22 Reason for Referral Pneumonia. Coughing. Onset Date Of Patient's Problem 04/23/22 Medical Diagnosis Pneumonia Treatment Diagnosis Pneumonia. Dysphagia. Pertinent Medical History Dementia. CAD. Pulmonary Fibrosis. HTN. Osteoporosis. CKD Stage 3. Rheumatoid Arthritis. Complication/Precautions/ Dementia Contraindication Comments Pain Pain Location & Comments No signs of pain during assessment Hearing Information Hearing Status Adequate for conversation Vision Information Vision Status Not assessed Patient Orientation Orientation & Mental Status Alert. Cooperative. Asked a few times about why she was here. Said she just wants to go home. Current Vitals & Interventions Current Vitals &/Or Interventions On room air. [facility] Initial Assessment/POC Assessment & Impression Rehabilitation Potential Comments Good Assessment/Impression Clinical Swallow Evaluation: Dry, nonproductive cough at baseline. ORAL MOTOR EXAM: Lingual deviation to left (weak?) on protrusion. Otherwise, WFL. PO TRIALS: THIN LIQUIDS: Via spoon, cup, and straw. Delayed, strong cough following sequential swallows by straw. Unclear whether due to difficulty swallowing, or intermittent cough at baseline. Tolerated several additional sips by cup and straw without coughing. PUREE SOLIDS: Via spoon - WNL SOFT SOLIDS: (canned fruit) - WNL MIXED TEXTURES: (canned fruit in thin liquid juice) - WNL SOLIDS: (carmen cracker) - fed herself - WNL ASSESSMENT: Did not present with significant difficulty or aspiration with PO intake; but she did have some coughing following sequential swallow via large accordion straw from hospital cup. As a precaution , will recommend she avoid straws during this hospital stay. Otherwise, recommend continuing a regular diet with thin liquids. She should be upright, in a chair, and alert and engaged for all PO intake . Will follow up one more time during hospital stay to ensure she is tolerating PO intake without signs of difficulty or aspiration. Intervention Plan & Frequency Frequency 2x Per Week Frequency/Duration length of stay Coordination Of Plan Has Been Nursing Communicated With Therapist Signature & License # I Certify That Therapy Services Provided, Therapy Plan Established Therapist Signature & License Number Paris Tonia [facility] Lic #[id number] Food Presentation Evaluation Dietary Recommendations Regular: IDDSI Level 7 Liquid Recommendations Thin Liquids: IDDSI Level 0 Swallow Precautions Sitting Upright (90 deg),No Straw Speech/Language Pathology Billing Units Billing Units Eval Swallow Function 1
[2022-04-27] MEDS: ATORVASTATIN 10 MG TABLET 20 MG PO (18:01)
--- NOTE | 2022-04-27 18:37 | PC.NURSE ---
End of Shift: Patient pleasant and cooperative, alert and oriented to self and place. Patient vitally stable, lungs with crackles, BS WNL, IV intact. Patient with moist, unproductive cough. Patient 2 assist/ez-stand. Patient incontinent and urinating. Patient tolerating regular diet.
[2022-04-27 19:47] VITALS: BP 151/77; PULSE 87; RESP 24; TEMP 36.3; O2SAT 95
[2022-04-27] MEDS: LATANOPROST 0.005% OPHTH 1 DROP EYE-BOTH (19:50)
[2022-04-27 21:44] VITALS: PULSE 87; RESP 24
[2022-04-27 23:00] VITALS: BP 163/69; PULSE 68; RESP 20; TEMP 36.2; O2SAT 95
[2022-04-28] VITALS (8 sets, daily range): BP systolic 152–168; BP diastolic 63–98; PULSE 63–91; RESP 16–30; TEMP 36.5–36.9; O2SAT 94–97
[2022-04-28] MEDS: METOPROLOL TARTRATE 25 MG TABLET 12.5 MG PO ×2 (06:46→14:45)
--- NOTE | 2022-04-28 07:00 | CRLHL7_ITS ---
For Patients: As a result of the Cures Act, medical imaging exams and procedure reports are released immediately into your electronic medical record. You may view this report before your referring provider. If you have questions, please contact your health care provider. INDICATION: Follow-up abnormal prior study COMPARISON: April 27, 2022 at 11:12 a.m. TECHNIQUE: Portable AP semi-upright single-view study April 28, 2022 at 7:51 a.m. FINDINGS: TUBES AND LINES: None. HEART AND MEDIASTINUM: The heart is mildly enlarged. LUNGS AND PLEURAL SPACES: Abnormal lung findings probably due to a combination fibrosis and bronchiectasis. There is no acute focal finding on the right and the right side is unchanged. There is diffuse opacification of left hemithorax which has slightly worsened. This probably represents an acute inflammatory process superimposed on chronic lung disease.No pleural effusion or pneumothorax OSSEOUS STRUCTURES: Age-appropriate appearance. No acute focal finding. IMPRESSION: Mild worsening of left-sided consolidation. This is probably an acute inflammatory process superimposed upon chronic lung disease. No pleural effusion. Unchanged right lung without acute focal finding. Dictated by Malik Armendariz MD @ 04/28/2022 8:09:44 AM (Electronically Signed)
--- NOTE | 2022-04-28 07:00 | PC.NURSE ---
End of shift status [id number] Pt alert with chronic confusion. Pt requires frequent reorientation. Pt did talk to daughter x3 and x1 this shift. BP elevated but stable. Remains on room air. Incontinent of bowel and bladder. Remained in bed this shift but requiring EZ stand for transferring. Using IS with assistance, reaching to 750. Pt observed resting well throughout the night. Pt able to d/c pending placement.
[2022-04-28] MEDS: predniSONE 20 MG TABLET 40 MG PO (07:32)
[2022-04-28 08:15] LABS: Hematocrit 35.6 % (33.0-51.0); Hemoglobin* 11.5 gm/dL (12.0-16.0); Immature Granulocytes Pct Auto 0.4 %; Lymphocytes Percent Auto 15.5 % (20-44); Mean Corpuscular HGB Conc 32 gm/dL (32-36); Mean Corpuscular Hemoglobin 31 pg (26-34); Mean Corpuscular Volume 97 fL (80-100); Monocytes Percent Auto 8.3 % (0.0-11.0); Neutrophils Percent Auto 75.8 % (42.0-72.0); Platelet Count* 212 K/uL (140-440); RDW Coefficient of Variation % 12.8 % (11.5-15.5); Red Blood Count 3.66 m/uL (4.00-5.20); White Blood Count* 11.02 K/uL (4.50-11.00)
[2022-04-28 08:17] LABS: Chloride* 112 mmol/L (96-114); Potassium* 4.1 mmol/L (3.6-5.1); Slide Review Reflex No; Sodium* 141 mmol/L (135-149)
[2022-04-28 08:20] LABS: Carbon Dioxide* 24 mmol/L (20-32); Creatinine* 0.8 mg/dL (0.5-1.5); Est. Creatinine Clearance* 34.87; Estimated Glomerular Filt Rate 72 ml/min
[2022-04-28 08:21] LABS: Blood Urea Nitrogen* 38 mg/dL (7-30); Calcium* 8.5 mg/dL (8.4-10.6); Glucose* 115 mg/dL (60-115)
[2022-04-28] MEDS: BENZONATATE 100 MG CAPSULE 200 MG PO ×3 (09:38→20:31)
[2022-04-28] MEDS: AZITHROMYCIN 250 MG TABLET PO (09:38)
[2022-04-28] MEDS: ASPIRIN 81 MG TAB.CHEW PO (09:38)
[2022-04-28] MEDS: FAMOTIDINE 20 MG TABLET PO ×2 (09:38→20:32)
[2022-04-28] MEDS: QUETIAPINE 25 MG TABLET PO ×2 (09:38→20:32)
[2022-04-28] MEDS: ERTAPENEM 1 GM in 0.9 % SODIUM CHLORIDE Mini-bag 100 ML IVPB (12:09)
--- NOTE | 2022-04-28 14:05 | PM.IMPN1 ---
Progress Note: A&P Assessment and plan (1) Acute and chronic respiratory failure with hypoxia: Problem details: - multifactorial: CAP, pulmonary fibrosis flare - changed rocephin to ertapenem on 04/25 due to disease progression - has now completed course of Azithromycin - on po steroids (40mg -->30mg on 04/28, as an outpatient, takes 5mg po daily) - on scheduled nebs and supportive measures Status: Acute (2) Pneumonia: Problem details: - Ceftriaxone and Azithromycin initiated in ED 04/23, changed to Ertapenem and Azithro 04/25 to increase coverage - clinically improving and not requiring supplemental oxygen, CXR 04/28 concerning for disease progression - given clinical improvement, no change to Ertapenem (allergic to PCN), repeat CXR 04/29 Status: Acute (3) Pulmonary fibrosis: Problem details: - diagnosed in 2014 - Has seen both Pulmonology and Rheumatology Status: Acute (4) Weakness: Problem details: - acute on chronic - PT and OT referrals ordered Status: Acute (5) Dementia: Problem details: - noted to have mild cognitive impairment, redirectable. On scheduled Seroquel with good results Status: Acute Plan - per above - follow pneumonia radiographically and clinically - actively seeking out TCU placement Subjective Date Seen: 04/28/22 Interval history: 86-year-old female with cognitive impairment, admitted to the hospital 04/23 for acute hypoxic respiratory failure in the setting of community-acquired pneumonia with known pulmonary fibrosis. Sara remains stable on RA. She is on ertapenem (04/25) and azithromycin (04/23-04/27). Seen by Speech therapy 04/27, no evidence of aspiration noted. Continues to work with therapies, will require TCU placement upon discharge. Exam Narrative: Exam Narrative: GEN: Alert and comfortable in bedside chair, short-term memory impairment is evident CV: RRR, No concerning murmurs, rubs, or gallops R: Rhonchi bilateral bases, no concerning wheezing, air movement decreased but adequate Ext: wwp, no concerning edema Skin: No concerning skin lesions or rashes on exposed skin Neuro: Nonfocal Psych: Appropriate for chronic conditions, +MCI Const: Vital Signs, click to edit/add: Vital Signs - 24 hr 04/27/22 15:00 04/27/22 15:00 04/27/22 15:00 Temperature 98 F Pulse Rate [Pulse Oximeter] 84 84 Respiratory Rate 24 24 24 Blood Pressure [Le ft Arm] 169/94 H Blood Pressure [Ri ght Arm] Pulse Oximetry 96 96 Oxygen Delivery La thod Room Air Room Air 04/27/22 19:47 04/27/22 21:44 04/27/22 23:00 Temperature 97.4 F L 97.2 F L Pulse Rate [Pulse Oximeter] 87 87 68 Respiratory Rate 24 24 20 Blood Pressure [Le ft Arm] 151/77 H 163/69 H Blood Pressure [Ri ght Arm] Pulse Oximetry 95 95 Oxygen Delivery La thod Room Air Room Air 04/27/22 23:00 04/28/22 03:49 04/28/22 06:59 Temperature Pulse Rate [Pulse Oximeter] 63 Respiratory Rate 20 16 Blood Pressure [Le ft Arm] 152/63 H Blood Pressure [Ri ght Arm] Pulse Oximetry 95 [facility] 04/28/22 07:00 04/28/22 07:00 04/28/22 07:00 Temperature 98.1 F Pulse Rate [Pulse Oximeter] 68 68 Respiratory Rate 28 H 28 H 28 H Blood Pressure [Le ft Arm] Blood Pressure [Ri ght Arm] 167/78 H Pulse Oximetry 95 95 [facility] Room Air 04/28/22 11:00 Temperature 98.3 F Pulse Rate [Pulse Oximeter] 68 Respiratory Rate 30 H Blood Pressure [Le ft Arm] Blood Pressure [Ri ght Arm] 153/89 H Pulse Oximetry 94 [facility] Labs Labs: Laboratory Results - last 24 hr 04/28/22 04/28/22 07:45 07:45 WBC 11.02 H RBC 3.66 L Hgb 11.5 L Hct 35.6 MCV 97 MCH 31 MCHC 32 RDW Coeff of Missael 12.8 Plt Count 212 Neut % (Auto) 75.8 H Lymph % (Auto) 15.5 L [place] % (Auto) 8.3 Eos % (Auto) 0.0 Baso % (Auto) 0.0 Neut # (Auto) 8.40 H Lymph # (Auto) 1.70 [place] # (Auto) 0.90 Eos # (Auto) 0.00 Baso # (Auto) 0.00 Sodium 141 Potassium 4.1 Chloride 112 Carbon Dioxide 24 BUN 38 H Creatinine 0.8 Estimated Creat Clear 34.87 Estimated GFR 72 Glucose 115 Calcium 8.5
--- NOTE | 2022-04-28 14:25 | NUTR.NU ---
F/U Nutrition Note: Pt meal intake recorded as 50-75% on and 04/26. RN states these were full meals that she had ordered. Pt does best with moist foods, likes gravy. Does not want modified texture. Regarding supplements: pt states she likes things very cold. Has refused a number of items, including Ensure Clear. RN will be making Ensure Shake (Ensure +ice cream) for this afternoon as well as offering Magic Cup. Pt thinks both of these sound appealing because they will be very cold. Plan: continue to offer high protein snacks. Change supplements to include Magic Cup.
--- NOTE | 2022-04-28 16:54 | PC.SOCIAL ---
Discharge planning- Phone call to Torri in admissions at [facility]. Following up on referral that was faxed for possible admission. Torri informed that the [facility] in declining admission due to not having an open female beds the rest of the week. Phone call to Asia in admissions at [facility] in [place]. Asia informed that the administrative office was not open yesterday due to the holiday. Asia will review referral later this afternoon for possible admission. Social Work will follow up as necessary.
[2022-04-28] MEDS: ATORVASTATIN 10 MG TABLET 20 MG PO (18:40)
--- NOTE | 2022-04-28 19:02 | PC.NURSE ---
End of Shift: Patient pleasant and cooperative, only oriented to self. Patient vitally stable, lungs with crackles, BS WNL, IV intact. Patient denies pain. Patient EZ-stand. Patient up in chair all day. Patient tolerating regular diet. Patient urinating and had 1 small BM. Patient very confused, constantly wanting to call family and go home
[2022-04-28] MEDS: LATANOPROST 0.005% OPHTH 1 DROP EYE-BOTH (20:32)
[2022-04-29] VITALS (7 sets, daily range): BP systolic 132–194; BP diastolic 84–103; PULSE 63–88; RESP 18–22; TEMP 35.8–36.3; O2SAT 95–99
--- NOTE | 2022-04-29 | CRLHL7_ITS ---
For Patients: As a result of the Century Cures Act, medical imaging exams and procedure reports are released immediately into your electronic medical record. You may view this report before your referring provider. If you have questions, please contact your health care provider. INDICATION: Follow-up pneumonia COMPARISON: April 28, 2022 at 7:51 a.m. TECHNIQUE: Single-view study April 29, 2022 at 6:51 a.m. FINDINGS: TUBES AND LINES: None. HEART AND MEDIASTINUM: Mildly enlarged but unchanged in appearance. LUNGS AND PLEURAL SPACES: Significant diffuse consolidation on the left.Possible developing left-sided pleural effusion. No pneumothorax. No acute focal finding on the right. Probable background of chronic interstitial lung disease/COPD. OSSEOUS STRUCTURES: Age-appropriate appearance. No acute focal finding.Right shoulder arthroplasty IMPRESSION: Significant diffuse consolidation on the left. This is likely pneumonia superimposed upon chronic lung disease. Possible developing left effusion. No acute findings on the right Dictated by Malik Armendariz MD @ 04/29/2022 7:10:30 AM (Electronically Signed)
--- NOTE | 2022-04-29 01:10 | PC.NURSE ---
Up to chair for dinner. EZ stand for transfers to bed/BSC. Incont of urine x2 large amounts. Had small and extra small loose stool this evening (continent of stool). Pleasant and cooperative, does ask repetitive questions but is very easy to redirect. HS cares performed with moderate assistance. Pat did discontinue her own IV this evening, IV intact. Left out, as abx is not due 1230 04/29. T&R Q1-2 H.
--- NOTE | 2022-04-29 01:14 | PC.NURSE ---
Addendum: Patient has used IS frequently this evening and encouraged to C/DB. Follows commands well.
[2022-04-29] MEDS: METOPROLOL TARTRATE 25 MG TABLET 12.5 MG PO ×2 (06:45→19:29)
[2022-04-29 06:59] LABS: Eosinophils Percent Auto 0.4 % (0.0-7.0); Hematocrit 34.6 % (33.0-51.0); Hemoglobin* 11.3 gm/dL (12.0-16.0); Immature Granulocytes Pct Auto 0.7 %; Lymphocytes Percent Auto 17.7 % (20-44); Mean Corpuscular HGB Conc 33 gm/dL (32-36); Mean Corpuscular Hemoglobin 32 pg (26-34); Mean Corpuscular Volume 97 fL (80-100); Monocytes Percent Auto 10.1 % (0.0-11.0); Neutrophils Percent Auto 71.1 % (42.0-72.0); Platelet Count* 313 K/uL (140-440); RDW Coefficient of Variation % 12.7 % (11.5-15.5); Red Blood Count 3.57 m/uL (4.00-5.20); White Blood Count* 13.71 K/uL (4.50-11.00)
[2022-04-29 07:12] LABS: Chloride* 112 mmol/L (96-114); Sodium* 140 mmol/L (135-149)
[2022-04-29 07:13] LABS: Potassium* 3.7 mmol/L (3.6-5.1); Slide Review Reflex No
[2022-04-29 07:15] LABS: Carbon Dioxide* 26 mmol/L (20-32); Creatinine* 0.7 mg/dL (0.5-1.5); Est. Creatinine Clearance* 34.87; Estimated Glomerular Filt Rate 84 ml/min
[2022-04-29 07:16] LABS: Blood Urea Nitrogen* 33 mg/dL (7-30); Calcium* 8.2 mg/dL (8.4-10.6); Glucose* 90 mg/dL (60-115)
[2022-04-29 07:32] LABS: Procalcitonin* 0.06 ng/mL (<0.50)
--- NOTE | 2022-04-29 08:13 | CRLHL7_ITS ---
For Patients: As a result of the Century Cures Act, medical imaging exams and procedure reports are released immediately into your electronic medical record. You may view this report before your referring provider. If you have questions, please contact your health care provider. INDICATION: Pneumonia. Weakness. COMPARISON: A chest radiograph and chest CT from August 14, 2020. Multiple intervening chest radiographs were also reviewed post recently earlier April 29, 2022.. TECHNIQUE: : CT examination of the chest was performed without contrast. Thin axial sections were obtained from above the apices of the lungs to the lung bases. Please note that all CT scans at this facility use dose modulation, iterative reconstruction, and/or weight-based dosing when appropriate to reduce radiation dose to as low as reasonably achievable. FINDINGS: : HEART and MEDIASTINUM: The heart is mildly enlarged. There is atherosclerotic vascular calcifications. A few prominent mediastinal lymph nodes are noted which are likely reactive. These are primarily pre-vascular on the left. No significant pericardial fluid. LUNGS AND PLEURAL SPACES: RIGHT: Compensatory hyperinflation relative volume loss on the left. Linear opacities primarily peripheral with areas of subpleural reticulation and traction bronchiectasis and bronchiolectasis. Consistent with interstitial fibrosis and very similar to August 22, 2020. No acute superimposed process. No pleural effusion. LEFT: Background of interstitial fibrosis with relatively severe bronchiectasis, primarily varicoid bronchiectasis. This most affects the left upper lobe and lingula as well as the base. This background pattern is roughly unchanged. However, there is consolidation identified in the intervening parenchyma of the left lung. This most affects the lingula in the left base in the left apical area. This intervening processes likely pneumonia. No cavitation VISUALIZED UPPER ABDOMEN: Cholelithiasis. Granulomatous calcifications of the liver. Otherwise, the visualized upper abdominal structures appear normal. OSSEOUS STRUCTURES: Age-appropriate appearance. No acute fracture or destructive process. TUBES and LINES: None. IMPRESSION: 1. There is a background pattern of interstitial fibrosis. This is mild to moderate on the right and is unchanged since August 22, 2020 without acute superimposed process. The fibrosis pattern on the left is relatively severe and associated with varicoid bronchiectasis. An acute superimposed inflammatory processes noted on the left, as described, likely pneumonia. No cavitation. No significant pleural fluid. The acute process is new since the chest radiograph and CT 2020. 2. Other nonacute appearing findings as above Please note that all CT scans at this facility use dose modulation, iterative reconstruction, and/or weight-based dosing when appropriate to reduce radiation dose to as low as reasonably achievable. Dictated by Malik Armendariz MD @ 04/29/2022 10:07:24 AM (Electronically Signed)
--- NOTE | 2022-04-29 08:13 | PM.IMPN1 ---
Subjective Date Seen: 04/29/22 Exam Const: Vital Signs, click to edit/add: Vital Signs - 24 hr 04/28/22 11:00 04/28/22 15:00 04/28/22 15:00 Temperature 98.3 F 98.5 F Pulse Rate [Pulse Oximeter] 68 91 91 Respiratory Rate 30 H 30 H 30 H Blood Pressure [Le ft Arm] 158/69 H Blood Pressure [Ri ght Arm] 153/89 H Pulse Oximetry 94 96 Oxygen Delivery Me thod Room Air Room Air 04/28/22 15:00 04/28/22 20:19 04/28/22 20:47 Temperature 97.7 F Pulse Rate [Pulse Oximeter] 78 Respiratory Rate 30 H 18 18 Blood Pressure [Le ft Arm] 161/98 H Blood Pressure [Ri ght Arm] Pulse Oximetry 96 97 97 Oxygen Delivery Me thod Room Air Room Air Room Air 04/29/22 00:59 04/29/22 01:06 04/28/22 23:15 Temperature 97.7 F Pulse Rate [Pulse Oximeter] 79 Respiratory Rate 22 24 Blood Pressure [Le ft Arm] 168/83 H Blood Pressure [Ri ght Arm] Pulse Oximetry 96 Oxygen Delivery Me thod Room Air Room Air Labs Labs: Laboratory Results - last 24 hr 04/28/22 04/28/22 04/29/22 07:45 07:45 06:40 WBC 11.02 H 13.71 H RBC 3.66 L 3.57 L Hgb 11.5 L 11.3 L Hct 35.6 34.6 MCV 97 97 MCH 31 32 MCHC 32 33 RDW Coeff of Missael 12.8 12.7 Plt Count 212 313 Neut % (Auto) 75.8 H 71.1 Lymph % (Auto) 15.5 L 17.7 L [place] % (Auto) 8.3 10.1 Eos % (Auto) 0.0 0.4 Baso % (Auto) 0.0 0.0 Neut # (Auto) 8.40 H 9.70 H Lymph # (Auto) 1.70 2.40 [place] # (Auto) 0.90 1.40 H Eos # (Auto) 0.00 0.10 Baso # (Auto) 0.00 0.00 Sodium 141 Potassium 4.1 Chloride 112 Carbon Dioxide 24 BUN 38 H Creatinine 0.8 Estimated Creat Clear 34.87 Estimated GFR 72 Glucose 115 Calcium 8.5 Procalcitonin 04/29/22 06:40 WBC RBC Hgb Hct MCV MCH MCHC RDW Coeff of Missael Plt Count Neut % (Auto) Lymph % (Auto) [place] % (Auto) Eos % (Auto) Baso % (Auto) Neut # (Auto) Lymph # (Auto) [place] # (Auto) Eos # (Auto) Baso # (Auto) Sodium 140 Potassium 3.7 Chloride 112 Carbon Dioxide 26 BUN 33 H Creatinine 0.7 Estimated Creat Clear 34.87 Estimated GFR 84 Glucose 90 Calcium 8.2 L Procalcitonin 0.06
[2022-04-29] MEDS: QUETIAPINE 25 MG TABLET PO ×2 (08:58→21:04)
[2022-04-29] MEDS: ASPIRIN 81 MG TAB.CHEW PO (08:58)
[2022-04-29] MEDS: levoFLOXacin 500 MG TABLET PO (08:58)
[2022-04-29] MEDS: BENZONATATE 100 MG CAPSULE 200 MG PO ×3 (08:58→21:04)
[2022-04-29] MEDS: predniSONE 20 MG TABLET 30 MG PO (09:46)
[2022-04-29] MEDS: FAMOTIDINE 20 MG TABLET PO ×2 (09:46→21:04)
--- NOTE | 2022-04-29 13:20 | PM.IMPN1 ---
Progress Note: A&P Assessment and plan (1) Acute and chronic respiratory failure with hypoxia: Problem details: - multifactorial: CAP, pulmonary fibrosis flare. Currently stable on room air - abx (see below for details) - on po steroids (40mg -->30mg on 04/28, as an outpatient, takes 5mg po daily) - on scheduled nebs and supportive measures Status: Acute (2) Pneumonia: Problem details: - completed course of azithromycin, received 4 days of IV ertapenem - transition to oral Levaquin on 04/29 given disease progression on imaging and self-discontinuation of IV Status: Acute (3) Pulmonary fibrosis: Problem details: - diagnosed in 2014 - Has seen both Pulmonology and Rheumatology in outpatient f/u Status: Acute (4) Weakness: Problem details: - acute on chronic - PT and OT following, will require TCU stay upon discharge Status: Acute (5) Dementia: Problem details: - noted to have mild cognitive impairment, redirectable. On scheduled Seroquel with good results Status: Acute Plan - per above - ASA, ambulation, SCDs for ppx - awaiting TCU placement Subjective Date Seen: 04/29/22 Interval history: 86-year-old female with known dementia, admitted to the hospital 04/23 for acute hypoxic respiratory failure in the setting of community-acquired pneumonia with known pulmonary fibrosis. Sara remains stable on RA, continues to have intermittent coughing paroxysms (daughter notes that this is baseline for her given pulmonary fibrosis). She was treated with ertapenem (04/25-04/28, stopped after patient self discontinued IV) and azithromycin (04/23-04/27). Seen by Speech therapy 04/27, no evidence of aspiration noted. Given radiographic worsening of pneumonia, CT scan obtained today: IMPRESSION: 1. There is a background pattern of interstitial fibrosis. This is mild to moderate on the right and is unchanged since August 22, 2020 without acute superimposed process. The fibrosis pattern on the left is relatively severe and associated with varicoid bronchiectasis. An acute superimposed inflammatory processes noted on the left, as described, likely pneumonia. No cavitation. No significant pleural fluid. The acute process is new since the chest radiograph and CT 2020. Patient remains stable on room air and has self-discontinued IV; we will trial Levaquin for the above findings. Exam Narrative: Exam Narrative: GEN: Alert HEENT: Normal external ears, EOMIs bilaterally, no scleral icterus CV: RRR, No concerning murmurs, rubs, or gallops R: Coarse lung sounds with rhonchi at bilateral bases, no wheezing, not tachypneic during my exam Ext: wwp, no concerning edema Skin: No concerning skin lesions or rashes on exposed skin Neuro: No focal deficits Psych: Appropriate for chronic conditions Const: Vital Signs, click to edit/add: Vital Signs - 24 hr 04/28/22 15:00 04/28/22 15:00 04/28/22 15:00 Temperature 98.5 F Pulse Rate [Pulse Oximeter] 91 91 Respiratory Rate 30 H 30 H 30 H Blood Pressure [Le ft Arm] 158/69 H Blood Pressure [Ri ght Arm] Pulse Oximetry 96 96 Oxygen Delivery Me thod Room Air Room Air 04/28/22 20:19 04/28/22 20:47 04/29/22 00:59 Temperature 97.7 F Pulse Rate [Pulse Oximeter] 78 Respiratory Rate 18 18 22 Blood Pressure [Le ft Arm] 161/98 H Blood Pressure [Ri ght Arm] Pulse Oximetry 97 97 Oxygen Delivery Me thod Room Air Room Air 04/29/22 01:06 04/28/22 23:15 04/29/22 07:00 Temperature 97.7 F Pulse Rate [Pulse Oximeter] 79 Respiratory Rate 24 Blood Pressure [Le ft Arm] 168/83 H Blood Pressure [Ri ght Arm] Pulse Oximetry 96 95 Oxygen Delivery Ok thod Room Air Room Air Room Air 04/29/22 07:00 04/29/22 11:00 Temperature 96.5 F L 97.4 F L Pulse Rate [Pulse Oximeter] 63 66 Respiratory Rate 18 18 Blood Pressure [Le ft Arm] 194/99 H Blood Pressure [Ri ght Arm] 146/90 H Pulse Oximetry 95 99 Oxygen Delivery Me thod Room Air Room Air Labs Labs: Laboratory Results - last 24 hr 04/29/22 04/29/22 06:40 06:40 WBC 13.71 H RBC 3.57 L Hgb 11.3 L Hct 34.6 MCV 97 MCH 32 MCHC 33 RDW Coeff of Missael 12.7 Plt Count 313 Neut % (Auto) 71.1 Lymph % (Auto) 17.7 L [place] % (Auto) 10.1 Eos % (Auto) 0.4 Baso % (Auto) 0.0 Neut # (Auto) 9.70 H Lymph # (Auto) 2.40 [place] # (Auto) 1.40 H Eos # (Auto) 0.10 Baso # (Auto) 0.00 Sodium 140 Potassium 3.7 Chloride 112 Carbon Dioxide 26 BUN 33 H Creatinine 0.7 Estimated Creat Clear 34.87 Estimated GFR 84 Glucose 90 Calcium 8.2 L Procalcitonin 0.06
--- NOTE | 2022-04-29 16:24 | PC.SOCIAL ---
Discharge planning- Met with pt's and pt's daughter. Provided an update on locating a SNF for possible placement. Family would like to look into possible getting 24 hour care through [facility] so they can take pt home. If this is possible Social Work can assist with locating PT/OT services. Family will provide an update tomorrow when they speak to [facility]. Social Work will continue to locate SNF placement in the meantime. Pt's was discouraged that social work was looking for SNF's so far away from [place]. Explained to family that social work has contacted several SNF's in the area and has to start looking out further due to no beds being available and low staffing at SNF's. Provided family with a list of extended SNF's out of the area. Family only wanted this worker to contact [facility] and again stated that the other SNF's were too far away. Contacted the following SNF's. 1. [facility] in [place]- Phone call to Asia in admissions. They are still assessing pt for possible admission. 2. [facility] in [place]- Left a voicemail with Saima in admissions on bed availability. 3. [facility] in [place]- Phone call to admissions. Left a voicemail inquiring on bed availability. 4. [facility]- Phone call to Josh Cabrera in admissions. There are no open beds in the SNF, but there is an open swing bed. Faxed referral for assessment. 5. [facility]- Phone call to Michelle in admission. Left a voicemail inquiring on bed availability. Social Work will continue to follow up as necessary.
[2022-04-29] MEDS: ATORVASTATIN 10 MG TABLET 20 MG PO (19:29)
--- NOTE | 2022-04-29 19:45 | PC.NURSE ---
shift note: pt has elevated systolic BP this a.m and afternoon. Pt asymtomatic of elevated BP. LS with faint crkls to LLL. Pt has wet cough. Pt denies sob or c.pain. Pt EZ lift with transfers due to increased l/e weakness. pt very tired today. pt also leaning to rt when sitting up in recliner. Dr. Galaviz notified.
[2022-04-29] MEDS: LATANOPROST 0.005% OPHTH 1 DROP EYE-BOTH (21:06)
[2022-04-30 03:00] VITALS: BP 148/75; PULSE 61; RESP 18; TEMP 35.9; O2SAT 95
[2022-04-30] MEDS: ACETAMINOPHEN 325 MG TABLET 975 MG PO (03:14)
--- NOTE | 2022-04-30 05:21 | PC.NURSE ---
Shift note: Pt has been calm and relax tonight. Remained in bed throughout the shift. Occasional confusion and disorientation noted and pt re-oriented periodically. Complained of generalized body pain and PRN Tylenol given.
[2022-04-30] MEDS: METOPROLOL TARTRATE 25 MG TABLET 12.5 MG PO ×2 (06:43→18:41)
[2022-04-30 07:00] VITALS: BP 161/80; PULSE 65; RESP 30; TEMP 36.9; O2SAT 96
[2022-04-30 07:30] LABS: Basophils Percent Auto 0.1 % (0.0-3.0); Eosinophils Percent Auto 0.7 % (0.0-7.0); Hematocrit 37.6 % (33.0-51.0); Hemoglobin* 12.2 gm/dL (12.0-16.0); Immature Granulocytes Pct Auto 1.1 %; Lymphocytes Percent Auto 19.5 % (20-44); Mean Corpuscular HGB Conc 32 gm/dL (32-36); Mean Corpuscular Hemoglobin 31 pg (26-34); Mean Corpuscular Volume 96 fL (80-100); Monocytes Percent Auto 8.6 % (0.0-11.0); Platelet Count* 341 K/uL (140-440); RDW Coefficient of Variation % 12.6 % (11.5-15.5); Red Blood Count 3.92 m/uL (4.00-5.20); White Blood Count* 12.34 K/uL (4.50-11.00)
[2022-04-30 07:32] LABS: Slide Review Reflex No
[2022-04-30 07:43] LABS: Chloride* 108 mmol/L (96-114); Potassium* 4.2 mmol/L (3.6-5.1); Sodium* 137 mmol/L (135-149)
[2022-04-30 07:45] LABS: Creatinine* 0.8 mg/dL (0.5-1.5); Est. Creatinine Clearance* 34.87; Estimated Glomerular Filt Rate 72 ml/min
[2022-04-30 07:46] LABS: Blood Urea Nitrogen* 33 mg/dL (7-30); Calcium* 8.5 mg/dL (8.4-10.6); Carbon Dioxide* 25 mmol/L (20-32); Glucose* 98 mg/dL (60-115)
[2022-04-30 08:03] LABS: Procalcitonin* 0.06 ng/mL (<0.50)
[2022-04-30] MEDS: BENZONATATE 100 MG CAPSULE 200 MG PO ×3 (08:38→20:49)
[2022-04-30] MEDS: ASPIRIN 81 MG TAB.CHEW PO (08:38)
[2022-04-30] MEDS: levoFLOXacin 250 MG TABLET PO (08:39)
[2022-04-30] MEDS: predniSONE 20 MG TABLET 30 MG PO (08:39)
[2022-04-30] MEDS: FAMOTIDINE 20 MG TABLET PO ×2 (08:39→20:49)
[2022-04-30] MEDS: QUETIAPINE 25 MG TABLET PO ×2 (08:39→20:49)
[2022-04-30 11:00] VITALS: BP 141/84; PULSE 87; RESP 24; TEMP 36.4; O2SAT 95
[2022-04-30 15:00] VITALS: BP 128/72; PULSE 94; RESP 28; TEMP 36.4; O2SAT 96
--- NOTE | 2022-04-30 15:31 | PM.IMPN1 ---
Progress Note: A&P Assessment and plan (1) Acute and chronic respiratory failure with hypoxia: Problem details: - multifactorial: CAP, pulmonary fibrosis flare. Has remained stable on room air without fevers - abx (azithromycin, IV ertapenem, transitioned to oral Levaquin - on po steroids (40mg -->30mg on 04/28, as an outpatient, takes 5mg po daily) - on scheduled nebs and supportive measures Status: Acute (2) Pneumonia: Problem details: - completed course of azithromycin, received 4 days of IV ertapenem - transitioned to oral Levaquin on 04/29 given disease progression on imaging and self-discontinuation of IV Status: Acute (3) Pulmonary fibrosis: Problem details: - diagnosed in 2014 - Has seen both Pulmonology and Rheumatology in outpatient f/u Status: Acute (4) Weakness: Problem details: - acute on chronic - PT and OT following, will require TCU vs HH on discharge Status: Acute (5) Dementia: Problem details: - noted to have mild cognitive impairment, redirectable. On scheduled Seroquel with good results (somnolence with morning dosing, changed to HS dosing only 04/30) Status: Acute Plan - per above - ASA, SCDs, ambulation for ppx - home with HH and 24/7 caregiving assistance on 05/01 - and daughter updated at bedside, questions answered Subjective Date Seen: 04/30/22 Interval history: 86-year-old female with cognitive impairment, admitted to the hospital 04/23 for acute hypoxic respiratory failure in the setting of community-acquired pneumonia, known pulmonary fibrosis. Sara denies pain this morning, continues to have intermittent coughing paroxysms (baseline for her, given pulmonary fibrosis history). She is tolerating oral Levaquin, procalcitonin remains within normal limits and white count is trending downward. She remains afebrile and she is stable on room air. She continues to see PT and OT, who recommend TCU placement; would prefer to take patient home and he has arranged 24/7 home care that will be initiated tomorrow. We will also order home health (PT, OT, and nursing) for discharge. Exam Narrative: Exam Narrative: GEN: Alert HEENT: Normal external ears, EOMIs bilaterally, no scleral icterus CV: RRR, No concerning murmurs, rubs, or gallops R: LCTA bilaterally without concerning wheezing, rales, or rhonchi Ext: wwp, no concerning edema Skin: No concerning skin lesions or rashes on exposed skin Neuro: Nonfocal Psych: Appropriate Const: Vital Signs, click to edit/add: Vital Signs - 24 hr 04/29/22 19:00 04/29/22 23:00 04/29/22 23:00 Temperature 96.8 F L Pulse Rate [Pulse Oximeter] 75 Respiratory Rate 18 18 18 Blood Pressure [Le ft Arm] 140/103 H Blood Pressure [Ri ght Arm] Pulse Oximetry 95 95 Oxygen Delivery Me thod Room Air Room Air 04/29/22 23:00 04/30/22 03:00 04/30/22 07:00 Temperature 97 F L 96.6 F L 98.4 F Pulse Rate [Pulse Oximeter] 75 61 65 Respiratory Rate 18 18 30 H Blood Pressure [Le ft Arm] 137/84 148/75 H Blood Pressure [Ri ght Arm] 161/80 H Pulse Oximetry 95 95 96 Oxygen Delivery Me thod Room Air Room Air Room Air 04/30/22 07:00 04/30/22 07:00 04/30/22 11:00 Temperature 97.6 F Pulse Rate [Pulse Oximeter] 65 87 Respiratory Rate 30 H 30 H 24 Blood Pressure [Le ft Arm] Blood Pressure [Ri ght Arm] 141/84 H Pulse Oximetry 96 95 Oxygen Delivery Me thod Room Air Room Air Labs Labs: Laboratory Results - last 24 hr 04/30/22 04/30/22 07:15 07:15 WBC 12.34 H RBC 3.92 L Hgb 12.2 Hct 37.6 MCV 96 MCH 31 MCHC 32 RDW Coeff of Missael 12.6 Plt Count 341 Neut % (Auto) 70.0 Lymph % (Auto) 19.5 L [place] % (Auto) 8.6 Eos % (Auto) 0.7 Baso % (Auto) 0.1 Neut # (Auto) 8.60 H Lymph # (Auto) 2.40 [place] # (Auto) 1.10 H Eos # (Auto) 0.10 Baso # (Auto) 0.00 Sodium 137 Potassium 4.2 Chloride 108 Carbon Dioxide 25 BUN 33 H Creatinine 0.8 Estimated Creat Clear 34.87 Estimated GFR 72 Glucose 98 Calcium 8.5 Procalcitonin 0.06
[2022-04-30] MEDS: ATORVASTATIN 10 MG TABLET 20 MG PO (17:54)
--- NOTE | 2022-04-30 18:18 | PC.NURSE ---
End of Shift: Patient pleasant and cooperative. Patient vitally stable, lungs with crackles, BS WNL, NO IV. Patient denies pain. Patient 2 assist or EZ stand. Patient tolerating regular diet. Patient had 2 BM's this shift, in brief and commode.
[2022-04-30 19:00] VITALS: BP 128/85; PULSE 88; RESP 18; TEMP 36.2; O2SAT 95
--- NOTE | 2022-04-30 20:19 | PC.SOCIAL ---
Discharge planning- received a phone call from pt's , Satly Caban at [phone], informing that he spoke with [facility] and they are able to provide 24/7 care. Salty provided this worker with the contact information for [facility] (Paris Garrido, ). Informed Salty that pt will need an EZ Stand that can be rented from a medical company. Salty stated that wasn't a problem and he would just need assistance and knowing where to get this equipment. Informed Salty that it was recommended that pt get a hospital bed. Salty informs that pt doesn't currently have a hospital bed at home, but the bed they have has been working for pt. Salty will discuss with medical staff further. This worker reached out to Paris Garrido at [facility] to confirm that the agency can provide 24/7 care for pt. Paris informed that they are able to provide 24/7 care. Informed that pt is medically ready for discharge but pt will need equipment delivered to her home for transferring (EZ Stand). Anticipate that pt can discharge tomorrow. Paris informed that she can have staff at the home at 1:00 pm to begin services. Discussed with Lisa Glover in OT at [facility]. Lisa will work with [employer] to get the EZ stand equipment to pt's home by tomorrow. Confirmed that Lisa was able to speak with [employer] and EZ stand will be delivered to the home tomorrow. [employer] is aware that pt will be home by 1:00 pm. Phone call to Hellen at [facility]. Home care can begin nursing services on 05/05/22 and PT/OT within 1-2 weeks. Discussed with MD and this is acceptable. Faxed face to face MD order for home care for Nursing, PT, and OT to Hellen at [facility]. Met with pt, pt's daughter, and pt's in pt's room. Provided an update that pt will discharge tomorrow and this worker has confirmed with [facility] that services will begin tomorrow at 1:00 pm. Informed that the equipment will be delivered to the home tomorrow also. Informed that this worker is also getting home health care services into place for pt and will provide an update before discharge. Social work will follow up as necessary.
[2022-04-30] MEDS: LATANOPROST 0.005% OPHTH 1 DROP EYE-BOTH (20:51)
[2022-04-30 23:00] VITALS: BP 119/77; PULSE 79; RESP 18; TEMP 36.1; O2SAT 95
[2022-05-01] MEDS: ACETAMINOPHEN 325 MG TABLET 975 MG PO (01:58)
[2022-05-01 02:55] VITALS: BP 121/71; PULSE 68; RESP 18; TEMP 36.3; O2SAT 95
--- NOTE | 2022-05-01 04:52 | PC.NURSE ---
Shift note: Pt has been confused tonight, repeating same question. Re-oriented to decrease agitation. Attempted self-transfer several times but nurse intervened. A2 to bedside commode and EZ stand to BR. PRN Tylenol given to control possible discomfort which seems effective as pt slept after the medication.
[2022-05-01] MEDS: METOPROLOL TARTRATE 25 MG TABLET 12.5 MG PO (06:32)
[2022-05-01 07:00] VITALS: BP 151/82; PULSE 73; RESP 18; TEMP 36.9; O2SAT 98
[2022-05-01 07:17] LABS: Basophils Percent Auto 0.1 % (0.0-3.0); Eosinophils Percent Auto 1.1 % (0.0-7.0); Hematocrit 40.7 % (33.0-51.0); Hemoglobin* 13.3 gm/dL (12.0-16.0); Immature Granulocytes Pct Auto 0.9 %; Lymphocytes Percent Auto 19.3 % (20-44); Mean Corpuscular HGB Conc 33 gm/dL (32-36); Mean Corpuscular Hemoglobin 31 pg (26-34); Mean Corpuscular Volume 96 fL (80-100); Monocytes Percent Auto 7.9 % (0.0-11.0); Neutrophils Percent Auto 70.7 % (42.0-72.0); Platelet Count* 337 K/uL (140-440); RDW Coefficient of Variation % 12.6 % (11.5-15.5); Red Blood Count 4.23 m/uL (4.00-5.20); White Blood Count* 13.75 K/uL (4.50-11.00)
[2022-05-01 07:19] LABS: Slide Review Reflex No
[2022-05-01 07:26] LABS: Chloride* 107 mmol/L (96-114); Potassium* 3.8 mmol/L (3.6-5.1); Sodium* 138 mmol/L (135-149)
[2022-05-01 07:29] LABS: Blood Urea Nitrogen* 32 mg/dL (7-30); Carbon Dioxide* 26 mmol/L (20-32); Creatinine* 0.8 mg/dL (0.5-1.5); Est. Creatinine Clearance* 34.87; Estimated Glomerular Filt Rate 72 ml/min; Glucose* 99 mg/dL (60-115)
[2022-05-01 07:30] LABS: Calcium* 8.7 mg/dL (8.4-10.6)
[2022-05-01 07:47] LABS: Procalcitonin* 0.06 ng/mL (<0.50)
--- NOTE | 2022-05-01 09:03 | PM.DS1 ---
DS: Providers Provider Date Seen: 05/01/22 Date of admission: 04/23/22 14:58 Primary care physician: Ana Masters MD Admitting Clinician: Yun Galaviz MD Consults: ST, PT, OT Attending Physician on discharge: Yun Galaviz MD Date of Discharge: 05/01/22 DS: Diagnosis Discharge Diagnosis (1) Acute and chronic respiratory failure with hypoxia: Status: Acute Problem details: - multifactorial: CAP, pulmonary fibrosis flare. Remained stable on room air without fevers - abx (Azithromycin, IV Ertapenem, transitioned to oral Levaquin 04/29) - on po steroids (40mg -->30mg on 04/28, will discharge home on taper. As an outpatient, takes 5mg po daily) - on scheduled nebs and supportive measures (2) Pneumonia: Status: Acute Problem details: - completed course of Azithromycin, received 4 days of IV Ertapenem - transitioned to oral Levaquin on 04/29 given disease progression on imaging and self-discontinuation of IV (3) Pulmonary fibrosis: Status: Acute Problem details: - diagnosed in 2014 - Has seen both Pulmonology and Rheumatology in outpatient f/u (4) Weakness: Status: Acute Problem details: - acute on chronic - PT and OT following, will require TCU vs HH on discharge (5) Dementia: Status: Acute Problem details: - noted to have mild cognitive impairment, redirectable. On scheduled Seroquel with good results (somnolence with morning dosing, changed to HS dosing only 04/30) DS: Summary Hospital Course Hospital Course: 86-year-old female, admitted to the hospital on 04/23 with acute hypoxic respiratory failure and weakness in the setting of pneumonia and known history of pulmonary fibrosis. Sara was initially treated with Azithromycin and IV ceftriaxone, then transition to IV ertapenem. After patient self discontinued IV, we transitioned her to oral Levaquin, and she had good results with this. Her leukocytosis improved her procalcitonin remained within normal limits. Her chronic conditions (dementia and pulmonary fibrosis) remained stable, she did not require supplemental oxygen during stay. She was seen by PT and OT given her severe weakness. They recommended TCU stay; family was able to arrange 24/7 care at home, in addition to home health upon discharge. Status at Discharge Overall status at discharge: patient is progressing back to baseline Time Spent with Patient Time attestation: Total time spent providing and/or coordinating discharge services: Time spent: Greater than 30 minutes Specific discharge activities: Documentation, discharge med rec, care coordination Exam Narrative: Exam Narrative: GEN: Alert, dementia noted, nontoxic and stable on room air HEENT: Normal external ears, EOMIs bilaterally, no scleral icterus CV: RRR, No concerning murmurs, rubs, or gallops R: No wheezing, no rales, mild bibasilar rhonchi, improved from earlier during stay Ext: wwp, no concerning edema Skin: No concerning skin lesions or rashes on exposed skin Psych: Appropriate for cognitive impairment Const: Vital Signs, click to edit/add: Vital Signs - 24 hr 04/30/22 11:00 04/30/22 15:00 04/30/22 15:00 Temperature 97.6 F 97.6 F Pulse Rate [Pulse Oximeter] 87 94 94 Respiratory Rate 24 28 H 28 H Blood Pressure [Le ft Arm] 128/72 Blood Pressure [Ri ght Arm] 141/84 H Pulse Oximetry 95 96 Oxygen Delivery Me thod Room Air Room Air 04/30/22 15:00 04/30/22 19:00 04/30/22 23:00 Temperature 97.1 F L Pulse Rate [Pulse Oximeter] 88 Respiratory Rate 28 H 18 18 Blood Pressure [Le ft Arm] 128/85 Blood Pressure [Ri ght Arm] Pulse Oximetry 96 95 Oxygen Delivery Me thod Room Air Room Air 04/30/22 23:00 04/30/22 23:00 05/01/22 02:55 Temperature 96.9 F L 97.3 F L Pulse Rate [Pulse Oximeter] 79 68 Respiratory Rate 18 18 Blood Pressure [Le ft Arm] 119/77 121/71 Blood Pressure [Ri ght Arm] Pulse Oximetry 95 95 95 Oxygen Delivery Me thod Room Air Room Air Room Air DS: Data Data Completed and Pending Labs on day of discharge: Labs from last 24 hours 05/01/22 05/01/22 07:00 07:00 WBC 13.75 H RBC 4.23 Hgb 13.3 Hct 40.7 MCV 96 MCH 31 MCHC 33 RDW Coeff of Missael 12.6 Plt Count 337 Neut % (Auto) 70.7 Lymph % (Auto) 19.3 L [place] % (Auto) 7.9 Eos % (Auto) 1.1 Baso % (Auto) 0.1 Neut # (Auto) 9.70 H Lymph # (Auto) 2.70 [place] # (Auto) 1.10 H Eos # (Auto) 0.20 Baso # (Auto) 0.00 Sodium 138 Potassium 3.8 Chloride 107 Carbon Dioxide 26 BUN 32 H Creatinine 0.8 Estimated Creat Clear 34.87 Estimated GFR 72 Glucose 99 Calcium 8.7 Procalcitonin 0.06 Discharge Plan Discharge Disposition: Home Health Service Date of Admission: 04/23/22 14:58 Attending Provider on Discharge: Yun Galaviz Primary Care Provider: Ana Masters Condition: Stable Anticipated Discharge Date/Time: 05/01/22 11:00 Discharge Medications: New quetiapine 25 mg Tablet 25 mg PO HS PRN (Reason: agitation) Qty: 30 0RF Rx Instructions: as needed at bedtime for sleep or agitation levofloxacin 250 mg Tablet 250 mg PO DAILY 7 Days Qty: 7 0RF prednisone 10 mg tablet 10 mg PO DAILY 12 Days Qty: 18 0RF Rx Instructions: 3 tabs x1d, then 2 tabs x4d, then 1 tab x7 d, then back to 5mg daily per previous outpatient dose Continued atorvastatin 20 mg tablet 20 mg PO QPM Label Comments: TAKE ONE TABLET BY MOUTH ONCE DAILY WITH EVENING MEAL benzonatate 100 mg capsule 100 mg PO TID PRN Label Comments: TAKE 1 CAPSULE (100 MG) BY MOUTH 3 TIMES DAILY IF NEEDED FOR COUGH. famotidine 20 mg tablet 20 mg PO Q12H Label Comments: TAKE 1 TABLET (20 MG) BY MOUTH TWO TIMES DAILY. latanoprost 0.005 % drops 1 drp ophthalmic (eye) HS Label Comments: INSTILL 1 DROP INTO RIGHT EYE AT BEDTIME metoprolol tartrate 25 mg tablet 12.5 mg PO Q12H Label Comments: TAKE 1/2 TABLET BY MOUTH TWICE A DAY aspirin [Aspirin Childrens] 81 mg tablet,chewable 81 mg PO DAILY acetaminophen 500 mg capsule 500 mg PO Q6H PRN calcium carbonate-vitamin D2 600 mg calcium- 200 unit tablet 1 tab PO BID nitroglycerin [Nitrostat] 0.4 mg tablet, sublingual 0.4 mg sublingual Q5-15M PRN Rx Instructions: do not exceed 3 doses per episode multivitamin [Daily Multi-Vitamin] Tablet 1 tab PO DAILY Discharge Orders: Discharge Order (Routine); Ordered 05/01/22 Ordered By: Yun Galaviz Patient Education: Prednisone (By mouth), Levofloxacin (By mouth), Quetiapine (By mouth), Pneumonia (DC), Chronic Respiratory Failure (GEN), Acute Respiratory Failure (GEN) Additional Instructions: Prednisone taper, antibiotics, and Seroquel sent to [facility]. Can use Seroquel as needed at night for sleep/agitation (does not need to be taken every night). PT and OT will see you at home next week. Activity Level: Activity as Tolerated Discharge Diet: Regular Follow Up Appointments: Ana Masters MD [Primary Care Provider] - 05/13/22 1:00 pm Forms: [employer] Info Instructions
[2022-05-01] MEDS: levoFLOXacin 250 MG TABLET PO (09:08)
[2022-05-01] MEDS: BENZONATATE 100 MG CAPSULE 200 MG PO (09:08)
[2022-05-01] MEDS: ASPIRIN 81 MG TAB.CHEW PO (09:08)
[2022-05-01] MEDS: FAMOTIDINE 20 MG TABLET PO (09:08)
[2022-05-01] MEDS: guaiFENesin 100 MG/ML CUP PO (09:09)
[2022-05-01] MEDS: predniSONE 20 MG TABLET 30 MG PO (09:09)
[2022-05-01 11:00] VITALS: BP 140/74; PULSE 81; RESP 20; TEMP 36.5; O2SAT 95
--- NOTE | 2022-05-01 15:21 | PC.NURSE ---
Addendum entered by Lilian Rowley RN 05/01/22 16:09: Pt assisted onto stretcher 2 person pivot, tolerated well, though pt was anxious. Pt daughter has belongings and paperwork and will meet EMS at the house. Original Note: Nursing Care Hours: [id number] pt this shift calm and cooperative. No c/o pain, stable on room air. Lungs sound clear. Guaifenesin given PRN for cough. BM x2 incontinent. Labia red and sore, are cleaned and barrier cream applied. Discharge instructions provided to pt and adult daughter. No IV needing to be removed. Awaiting transfer by EMS to home.
[2022-05-01 16:03] VITALS: RESP 20; TEMP 36.5
--- NOTE | 2022-05-01 21:23 | PC.SOCIAL ---
Discharge planning- Phone call to Paris ([phone]) at [facility]. Confirmed with Paris that pt will discharge today. Informed Paris that [facility] will be providing home care and will begin on 05/05/2022. Paris requested discharge summary for pt. Phone call to pt's daughter, Lilian Lobo, at [phone]. Provided information on [facility] and when services would begin. Informed that everything is set for discharge today. Pt's daughter is in the car with pt's on the way to the [facility]. Faxed discharge summary to [facility] at [phone]. Faxed discharge summary and face to face sheet to [facility] at [phone].
== END 2022-05-01 16:05 | disposition home health service (06) | DRG 189 ==
LOC: ED 10:26 → MEDSURG 13:18
PROVIDERS: Family Medicine; Hospitalist; Admitting Provider Family Medicine; Emergency Provider Family Medicine; PCP Family Medicine; Visit Provider Family Medicine
DX: J96.21 Acute and chronic respiratory failure with hypoxia (principal); J18.9 Pneumonia, unspecified organism; D69.0 Allergic purpura; R53.1 Weakness; J84.10 Pulmonary fibrosis, unspecified; F03.90 Unspecified dementia, unspecified severity, without behavioral disturbance, psychotic disturbance, mood disturbance, and anxiety; I12.9 Hypertensive chronic kidney disease with stage 1 through stage 4 chronic kidney disease, or unspecified chronic kidney disease; N18.30 Chronic kidney disease, stage 3 unspecified; M06.9 Rheumatoid arthritis, unspecified
CPT/HCPCS: 36415; 71045; 71250; 80048; 80053; 80076; 82330; 82803; 83605; 83735; 83880; 84145; 84484; 85025; 86140; 87040; 87502; 87634; 87635; 92610; 93005; 94761; 97110; 97116; 97162; 97165; 97530; 97535; 99285; A9270; J0456; J0696; J1335; J2930; J7050; J7512

== ENCOUNTER 2022-05-01 15:55 | Outpatient (CLI) | payer MEDICARE, OTHER, SELFPAY | END 2022-05-01 15:56 | disposition home or self-care (01) | PROVIDERS: PCP Family Medicine; Visit Provider Family Medicine | DX: Z99.3 Dependence on wheelchair (principal) | CPT/HCPCS: A0425; A0428 ==